=== PATIENT | female | born 1990 | race Caucasian/White ===

== ENCOUNTER 2021-02-01 12:00 | Observation (INO) | payer OTHER ==
[2021-02-01 12:54] LABS: Basophils % (A) 0 %; Eosinophils # (A) 0.2 k/uL (0-0.7); Eosinophils % (A) 1 %; HCT 40.8 % (34.0-46.0); HGB 13.4 gm/dL (11.4-16.0); Lymphocytes # (A) 2.8 k/uL (1.0-4.8); Lymphocytes % (A) 27 %; MCH 28.6 pg (25.0-35.0); MCV 86.6 fL (80.0-100.0); Mean Platelet Volume 7.2; Monocytes # (A) 0.5 k/uL (0-1.0); Monocytes % (A) 4 %; Neutrophils % (A) 66 %; Platelet Count 334 k/uL (150-450); RBC 4.71 m/uL (3.80-5.40); RDW 13.1 % (11.5-15.5); WBC 10.6 k/uL (3.8-10.6)
[2021-02-01 13:07] LABS: ALT 33 U/L (4-34); AST 30 U/L (14-36); African American GFR (CKD) >90 (>60 ml/min/1.73 sqM); Albumin 3.9 g/dL (3.5-5.0); Alkaline Phosphatase 50 U/L (38-126); Amylase 55 U/L (30-110); Anion Gap 8 mmol/L; Blood Urea Nitrogen 10 mg/dL (7-17); Calcium 9.7 mg/dL (8.4-10.2); Carbon Dioxide 24 mmol/L (22-30); Chloride 104 mmol/L (98-107); Glucose 107 mg/dL (74-99); Lipase 135 U/L (23-300); Non-African American GFR(CKD) >90 (>60 ml/min/1.73 sqM); Potassium 4.2 mmol/L (3.5-5.1); Sodium 136 mmol/L (137-145); Total Bilirubin 0.3 mg/dL (0.2-1.3); Total Protein 6.9 g/dL (6.3-8.2)
[2021-02-01] MEDS ORDERED: KETOROLAC 15 MG/ML 1 ML VIAL IVP STA ×2 (13:37→23:35)
[2021-02-01] MEDS ORDERED: ONDANSETRON 4 MG/2 ML VIAL IVP STA ×2 (13:37→17:53)
[2021-02-01] MEDS ORDERED: SODIUM CHLORIDE 0.9% 1,000 ML IV STA (13:37)
--- NOTE | 2021-02-01 13:44 | ED ---
General Adult HPI <Kentrell Beauchamp - Last Filed: 02/01/21 20:18> - General Source: patient, RN notes reviewed Mode of arrival: wheelchair Limitations: no limitations <Devorah Srivastava - Last Filed: 02/02/21 10:10> - General Chief complaint: Abdominal Pain Stated complaint: Abd pain Time Seen by Provider: 02/01/21 13:23 - History of Present Illness Initial comments: 30-year-old female presents to the emergency department, accompanied by her spouse, for evaluation of generalized lower abdominal pain, onset noon today. Patient states the pain came on unprovoked and is accompanied by mild nausea. Reports worsening pain with movement, laughing, and any activity. Patient describes discomfort as severe cramping. States she has had a bowel movement today, denies diarrhea or constipation. States she is also experiencing increased pressure in the lower abdomen with urination. Patient reports LMP 01/18/2021. Patient denies fever, chills, headache, chest pain, difficulty breathing, and shortness of breath. (Devorah Srivastava) - Related Data Home Medications Medication Instructions Recorded Confirmed No Known Home Medications 02/01/21 02/01/21 Allergies Allergy/AdvReac Type Severity Reaction Status Date / Time codeine Allergy Unknown Verified 02/01/21 14:35 hydromorphone [From Dilaudid] Allergy Chest Pain Verified 02/01/21 14:35 nitrofurantoin Allergy Anaphylaxis Verified 02/01/21 14:35 [From Macrobid] Review of Systems ROS Other: All systems not noted in ROS Statement are negative. <Kentrell Beauchamp - Last Filed: 02/01/21 20:18> ROS Other: All systems not noted in ROS Statement are negative. <Devorah Srivastava - Last Filed: 02/02/21 10:10> ROS Statement: Those systems with pertinent positive or pertinent negative responses have been documented in the HPI. Past Medical History - Past Family History Mother Family Medical History: No Reported History <Devorah Srivastava - Last Filed: 02/02/21 10:10> General Exam Limitations: no limitations (Well-developed, well-nourished female in no acute distress. Initial temperature 97.7, pulse 83, respirations 20, blood pressure 135/93, pulse ox 100% on room air.) General appearance: alert, in no apparent distress ENT exam: Present: normal exam, normal oropharynx, mucous membranes moist Respiratory exam: Present: normal lung sounds bilaterally. Absent: respiratory distress, wheezes, rales, rhonchi, stridor Cardiovascular Exam: Present: regular rate, normal rhythm, normal heart sounds. Absent: systolic murmur, diastolic murmur, rubs, gallop, clicks GI/Abdominal exam: Present: soft, tenderness (Diffuse lower abdominal tenderness unchanged with palpation), normal bowel sounds. Absent: distended, guarding, rebound, rigid Back exam: Present: normal inspection. Absent: CVA tenderness (R), CVA tende rness (L) Neurological exam: Present: alert, oriented X3, CN II-XII intact Psychiatric exam: Present: normal mood Skin exam: Present: warm, dry, intact, normal color. Absent: rash <Devorah Srivastava - Last Filed: 02/02/21 10:10> Course <Devorah Srivastava - Last Filed: 02/02/21 10:10> Vital Signs 02/01/21 02/01/21 02/01/21 12:24 17:16 21:48 Temperature 97.7 F Pulse Rate 83 95 90 Respiratory 20 18 18 Rate Blood Pressure 135/93 108/78 O2 Sat by Pulse 100 98 98 Oximetry - Reevaluation(s) Reevaluation #1: 02/01/21 16:47 Entered patient's room to update her on positive , and found her dry heaving. Informed her that the CT would be canceled and that additional blood work would be required. Zofran ordered for nausea. Patient agreeable to plan of care. Patient states last menstrual period was 3 weeks ago and was one week late. Denies any vaginal bleeding or discharge currently. 02/01/21 19:[address] Beauchamp who will assume patient care at this time. (Devorah Srivastava) Medical Decision Making - Lab Data Result diagrams: 02/01/21 12:31 02/01/21 12:31 <Kentrell Beauchamp - Last Filed: 02/01/21 20:18> - Lab Data Result diagrams: 02/02/21 05:52 02/01/21 12:31 <Devorah Srivastava - Last Filed: 02/02/21 10:10> - Medical Decision Making 30-year-old female with abdominal pain. Pain initially began as bilateral lower abdominal pain. Patient initially denied chance of stating her last menstrual cycle was approximately 2 weeks ago. Patient was found to be with a beta hCG of 3100. Ultrasound was performed which was performed both transabdominally and transvaginally. The left ovary was not visualized. There was some free fluid within the pelvis. Initial hemoglobin was 13.4. The vital signs are stable. At the time of my initial evaluation patient had no abdominal tenderness but did complain of pain in the right upper quadrant. Stating that her pelvic pain and lower abdominal pain had resolved. I did discuss case with Dr. Candace barragan for [employer], she agrees to admit the patient for observation. Repeat hemoglobin will be obtained now and at 6 AM as well as a repeat beta hCG in the morning. Pain medication will be available. The patient will be kept nothing by mouth. (Kentrell Beauchamp) 30-year-old female presents to the emergency Department with complaints of sudden onset lower abdominal pain around noon today. Upon exam, patient is well-appearing, but reports persistent discomfort and intermittent nausea. Denied vaginal bleeding or chance of stating her LMP 01/18/2021. However, upon review of lab work, patient's urine hCG is positive therefore a beta was ordered and hCG is 3154. Ultrasound was obtained and shows no intrauterine or ectopic, however there is fluid noted in the cul-de-sac. Patient's pain has localized to underneath the right breast/ right upper quadrant and abdomen remains nontender to palpation. Pain and nausea medication were given with minimal improvement therefore doses were repeated. Patient care was discussed with Dr. Beauchamp who agrees to assume care of this patient at this time. (Devorah Srivastava) - Lab Data Lab Results 02/01/21 02/01/21 02/01/21 Range/Units 12:31 12:31 12:31 WBC 10.6 (3.8-10.6) k/uL RBC 4.71 (3.80-5.40) m/uL Hgb 13.4 (11.4-16.0) gm/dL Hct 40.8 (34.0-46.0) % MCV 86.6 (80.0-100.0) fL MCH 28.6 (25.0-35.0) pg MCHC 33.0 (31.0-37.0) g/dL RDW 13.1 (11.5-15.5) % Plt Count 334 (150-450) k/uL MPV 7.2 Neutrophils % 66 % Lymphocytes % 27 % Monocytes % 4 % Eosinophils % 1 % Basophils % 0 % Neutrophils # 7.0 (1.3-7.7) k/uL Lymphocytes # 2.8 (1.0-4.8) k/uL Monocytes # 0.5 (0-1.0) k/uL Eosinophils # 0.2 (0-0.7) k/uL Basophils # 0.0 (0-0.2) k/uL PT (9.0-12.0) sec INR (<1.2) APTT (22.0-30.0) sec Sodium 136 L (137-145) mmol/L Potassium 4.2 (3.5-5.1) mmol/L Chloride 104 (98-107) mmol/L Carbon Dioxide 24 (22-30) mmol/L Anion Gap 8 mmol/L BUN 10 (7-17) mg/dL Creatinine 0.81 (0.52-1.04) mg/dL Est GFR (CKD-EPI)AfAm >90 (>60 ml/min/1.73 sqM) Est GFR (CKD-EPI)NonAf >90 (>60 ml/min/1.73 sqM) Glucose 107 H (74-99) mg/dL Calcium 9.7 (8.4-10.2) mg/dL Total Bilirubin 0.3 (0.2-1.3) mg/dL AST 30 (14-36) U/L ALT 33 (4-34) U/L Alkaline Phosphatase 50 (38-126) U/L Total Protein 6.9 (6.3-8.2) g/dL Albumin 3.9 (3.5-5.0) g/dL Amylase 55 (30-110) U/L Lipase 135 (23-300) U/L HCG, Quant mIU/mL Urine Color Yellow Urine Appearance Clear (Clear) Urine pH 6.5 (5.0-8.0) Ur Specific Barnum 1.026 (1.001-1.035) Urine Protein Negative (Negative) Urine Glucose (UA) Negative (Negative) Urine Ketones Negative (Negative) Urine Blood Negative (Negative) Urine Nitrite Negative (Negative) Urine Bilirubin Negative (Negative) Urine Urobilinogen <2.0 (<2.0) mg/dL Ur Leukocyte Esterase Negative (Negative) Urine HCG, Qual (Not Detectd) Blood Type Blood Type Confirm Blood Type Recheck Bld Type Recheck Status Antibody Screen Spec Expiration Date 02/01/21 02/01/21 02/01/21 Range/Units 12:31 12:31 20:02 WBC (3.8-10.6) k/uL RBC (3.80-5.40) m/uL Hgb (11.4-16.0) gm/dL Hct (34.0-46.0) % MCV (80.0-100.0) fL MCH (25.0-35.0) pg MCHC (31.0-37.0) g/dL RDW (11.5-15.5) % Plt Count (150-450) k/uL MPV Neutrophils % % Lymphocytes % % Monocytes % % Eosinophils % % Basophils % % Neutrophils # (1.3-7.7) k/uL Lymphocytes # (1.0-4.8) k/uL Monocytes # (0-1.0) k/uL Eosinophils # (0-0.7) k/uL Basophils # (0-0.2) k/uL PT (9.0-12.0) sec INR (<1.2) APTT (22.0-30.0) sec Sodium (137-145) mmol/L Potassium (3.5-5.1) mmol/L Chloride (98-107) mmol/L Carbon Dioxide (22-30) mmol/L Anion Gap mmol/L BUN (7-17) mg/dL Creatinine (0.52-1.04) mg/dL Est GFR (CKD-EPI)AfAm (>60 ml/min/1.73 sqM) Est GFR (CKD-EPI)NonAf (>60 ml/min/1.73 sqM) Glucose (74-99) mg/dL Calcium (8.4-10.2) mg/dL Total Bilirubin (0.2-1.3) mg/dL AST (14-36) U/L ALT (4-34) U/L Alkaline Phosphatase (38-126) U/L Total Protein (6.3-8.2) g/dL Albumin (3.5-5.0) g/dL Amylase (30-110) U/L Lipase (23-300) U/L HCG, Quant 3164.3 mIU/mL Urine Color Urine Appearance (Clear) Urine pH (5.0-8.0) Ur Specific Barnum (1.001-1.035) Urine Protein (Negative) Urine Glucose (UA) (Negative) Urine Ketones (Negative) Urine Blood (Negative) Urine Nitrite (Negative) Urine Bilirubin (Negative) Urine Urobilinogen (<2.0) mg/dL Ur Leukocyte Esterase (Negative) Urine HCG, Qual Detected (Not Detectd) Blood Type Blood Type Confirm B Positive Blood Type Recheck Bld Type Recheck Status Antibody Screen Spec Expiration Date 02/01/21 02/01/21 02/01/21 Range/Units 20:11 20:11 20:11 WBC 15.3 H (3.8-10.6) k/uL RBC 4.37 (3.80-5.40) m/uL Hgb 12.6 (11.4-16.0) gm/dL Hct 37.5 (34.0-46.0) % MCV 85.6 (80.0-100.0) fL MCH 28.7 (25.0-35.0) pg MCHC 33.5 (31.0-37.0) g/dL RDW 13.8 (11.5-15.5) % Plt Count 381 (150-450) k/uL MPV 7.2 Neutrophils % 78 % Lymphocytes % 17 % Monocytes % 3 % Eosinophils % 0 % Basophils % 0 % Neutrophils # 11.9 H (1.3-7.7) k/uL Lymphocytes # 2.6 (1.0-4.8) k/uL Monocytes # 0.5 (0-1.0) k/uL Eosinophils # 0.0 (0-0.7) k/uL Basophils # 0.1 (0-0.2) k/uL PT 10.0 (9.0-12.0) sec INR 0.9 (<1.2) APTT 22.5 (22.0-30.0) sec Sodium (137-145) mmol/L Potassium (3.5-5.1) mmol/L Chloride (98-107) mmol/L Carbon Dioxide (22-30) mmol/L Anion Gap mmol/L BUN (7-17) mg/dL Creatinine (0.52-1.04) mg/dL Est GFR (CKD-EPI)AfAm (>60 ml/min/1.73 sqM) Est GFR (CKD-EPI)NonAf (>60 ml/min/1.73 sqM) Glucose (74-99) mg/dL Calcium (8.4-10.2) mg/dL Total Bilirubin (0.2-1.3) mg/dL AST (14-36) U/L ALT (4-34) U/L Alkaline Phosphatase (38-126) U/L Total Protein (6.3-8.2) g/dL Albumin (3.5-5.0) g/dL Amylase (30-110) U/L Lipase (23-300) U/L HCG, Quant mIU/mL Urine Color Urine Appearance (Clear) Urine pH (5.0-8.0) Ur Specific Barnum (1.001-1.035) Urine Protein (Negative) Urine Glucose (UA) (Negative) Urine Ketones (Negative) Urine Blood (Negative) Urine Nitrite (Negative) Urine Bilirubin (Negative) Urine Urobilinogen (<2.0) mg/dL Ur Leukocyte Esterase (Negative) Urine HCG, Qual (Not Detectd) Blood Type B Positive Blood Type Confirm Blood Type Recheck No Previous Record Bld Type Recheck Status CABO Indicated Antibody Screen NEGATIVE Spec Expiration Date 02/04/2021 - 2310 Disposition Is patient prescribed a controlled substance at d/c from ED?: No Decision to Admit Reason: Admit from EC Decision Date: 02/01/21 Decision Time: 20:21 <Kentrell Beauchamp - Last Filed: 02/01/21 20:18> Is patient prescribed a controlled substance at d/c from ED?: No <Devorah Srivastava - Last Filed: 02/02/21 10:10> Clinical Impression: Abdominal pain, Disposition: ADMITTED IP TO THIS [facility] Condition: Stable
[2021-02-01 15:06] LABS: Appearance,Urine Clear (Clear); Bilirubin,Urine Negative (Negative); Blood,Urine Negative (Negative); Color,Urine Yellow; Glucose,Urine (UA) Negative (Negative); Ketones,Urine Negative (Negative); Leukocyte Esterase,Urine Negative (Negative); Nitrite,Urine Negative (Negative); PH, Urine 6.5 (5.0-8.0); Protein,Urine Negative (Negative); Specific Gravity,Urine 1.026 (1.001-1.035); Urobilinogen,Urine <2.0 mg/dL (<2.0)
--- NOTE | 2021-02-01 15:27 | XR ---
EXAMINATION TYPE: XR KUB DATE OF EXAM: 02/01/2021 COMPARISON: None INDICATION: Abdomen pain TECHNIQUE: Single view abdomen upright view FINDINGS: No free air is under the diaphragm. Normal colonic bowel gas is present. No suspicious air-fluid leve ls or differential air-fluid levels are evident. Psoas margins are normal. No organomegaly is present. No suspicious calcifications evident. IMPRESSION: 1. Unremarkable Abdomen
[2021-02-01] MEDS ORDERED: MORPHINE SULFATE 4 MG/ML SYRINGE IVP STA ×2 (15:36→20:10)
--- NOTE | 2021-02-01 18:50 | US ---
EXAMINATION TYPE: Transabdominal and TV US DATE OF EXAM: 02/01/2021 6:35 PM COMPARISON: NONE CLINICAL HISTORY: diffuse lower abdominal pain, sudden onset. EC patient with RUQ pain now; gallbladd er already removed; prior abdominal pain today; did not know she was (urine detected); EXAM PERFORMED: Transvaginal (TV) and Transabdominal (TA) EXAM MEASUREMENTS: GESTATIONAL AGE / DATING Physician Established: Not yet established Dates by LMP: (2 weeks/4 days) EDC: 10/21/2021 Dates by First Scan: No previous Dates by Current Scan for: no IUP or ectopic is seen today and may be limited by patient's very large body habitus MATERNAL ANATOMY Uterus: 7.4 x 5.2 x 4.1cm; endometrial thickness = 0.7cm Right Ovary: 2.3 x 2.7 x 2.5cm Left Ovary: not seen TA or TV US Post CDS / Adnexa: moderate amount of free fluid seen in posterior cul de sac =1.3 x 2.8 x 1.2 x 0.52 3 = 2.3ml. Presence of corpus luteal cyst: not seen GESTATION / SURVEY: no IUP or ectopic is seen; left ovary is not seen. Date of LMP: Beta HcG (if available): urine detected IMPRESSION: The uterus is empty. No adnexal mass. There is some free fluid in the cul-de-sac measures 1.3 cm in t hickness. There are cervical cysts noted.
[2021-02-01] MEDS ORDERED: ONDANSETRON 4 MG/2 ML VIAL IVP PRN (20:21)
[2021-02-01] MEDS ORDERED: MORPHINE SULFATE 4 MG/ML SYRINGE IV PRN (20:21)
[2021-02-01] MEDS ORDERED: NALOXONE 0.4 MG/ML 1 ML VIAL IV PRN (20:21)
[2021-02-01] MEDS ORDERED: SODIUM CHLORIDE 0.9% 1,000 ML IV SCH (20:30)
--- NOTE | 2021-02-01 20:35 | XR ---
EXAMINATION TYPE: XR chest 1V portable DATE OF EXAM: 02/01/2021 COMPARISON: NONE HISTORY: Right sided chest pain TECHNIQUE: 2 views portable FINDINGS: Heart and mediastinum are normal. Lungs are clear. Diaphragm is normal. Bony thorax is inta ct. IMPRESSION: Normal chest.
[2021-02-01 20:44] LABS: INR 0.9 (<1.2); Partial Thromboplastin Time 22.5 sec (22.0-30.0)
[2021-02-01 20:54] LABS: Basophils # (A) 0.1 k/uL (0-0.2); Basophils % (A) 0 %; Eosinophils % (A) 0 %; HCT 37.5 % (34.0-46.0); HGB 12.6 gm/dL (11.4-16.0); Lymphocytes # (A) 2.6 k/uL (1.0-4.8); Lymphocytes % (A) 17 %; MCH 28.7 pg (25.0-35.0); MCHC 33.5 g/dL (31.0-37.0); MCV 85.6 fL (80.0-100.0); Mean Platelet Volume 7.2; Monocytes # (A) 0.5 k/uL (0-1.0); Monocytes % (A) 3 %; Neutrophils # (A) 11.9 k/uL (1.3-7.7); Neutrophils % (A) 78 %; Platelet Count 381 k/uL (150-450); RBC 4.37 m/uL (3.80-5.40); RDW 13.8 % (11.5-15.5); WBC 15.3 k/uL (3.8-10.6)
[2021-02-01] MEDS ORDERED: CYCLOBENZAPRINE 10 MG TAB PO STA (23:33)
[2021-02-01] MEDS ORDERED: KETOROLAC 30 MG/ML 1 ML VIAL IVP STA (23:40)
[2021-02-01] MEDS: LACTATED RINGERS 1,000 ML IV SCH (23:53)
--- NOTE | 2021-02-01 23:57 | P.CONS ---
History of Present Illness - Reason for Consult Consult date: 02/01/21 - History of Present Illness The patient is a 30-year-old female with a PMH of cholecystectomy, gastric sleeve and subsequent gastric ulcer in 2012 who presented to the emergency room with complaints of lower abdominal pressure and pain. The patient reported that her pain had started earlier today, unprovoked, and gradually worsened. She initially felt as though she had to defecate, but after spending some time on the toilet, she was unable to do so. She experienced continued pressure of the lower abdomen, which prompted her to come to the emergency room. In the emergency room, the patient's test returned positive with a hCG 3164. The patient then noted that her pain subsequently changed to right upper quadrant, right flank, and right shoulder. She notes that the pain is very strongly pleuritic, 10 out of 10, worsening with movement, and occurring in a bandlike fashion across her right flank to her right shoulder, and her right upper quadrant. The pain is alleviated with taking shallow breaths or with sitting in a specific position. She denied ever experiencing such pain in the past. Also denied any history of blood clots. Denied lower extremity swelling, pain, or redness. Denied any history of heart disease. Reports occasional cramping of her calves and her back, but states that she hasn't experienced one "in quite some time". The patient further denied dizziness, nausea, vomiting, diaphoresis. Vital signs at time of the interview were bp 109/70, pulse 62, and SpO2 97% on room air. EKG revealed a normal sinus rhythm at [address]/T-wave changes noted as reviewed by me. Review of systems: Pertinent positives and negatives as discussed in HPI, a complete review of systems was performed and all other systems are negative. Physical examination: General: non toxic, in moderate distress, appears older than stated age, morbidly obese Derm: no unusual rashes/lesions no unusual ecchymoses, warm, dry Head: atraumatic, normocephalic, symmetric Eyes: EOMI, no lid lag, anicteric sclera, pupils equal round reactive to light ENT: Nose and ears atraumatic, no thrush, no pharyngeal erythema Neck: No thyromegaly, no cervical lymphadenopathy, trachea midline, supple Mouth: no lip lesion, mucus membranes moist Cardiovascular: S1S2 reg, no murmur, positive posterior tibial pulse bilateral, no edema, capillary refill less than 2 seconds Lungs: CTA bilateral, no rhonchi, no rales , no accessory muscle use, right chest wall tenderness Abdominal: soft, right upper quadrant tenderness, some guarding, no appreciable organomegaly, normal bowel sounds Ext: no gross muscle atrophy, muscle strength 5 out of 5 in all 4 extremities grossly, no contractures, Neuro: No gross focal deficits noted Psych: Alert, oriented, appropriate affect Assessment/plan Right upper quadrant, right flank, and right shoulder pain -Troponin and d-dimer ordered by cardiology -Low suspicion for ACS at this time due to strong pleuritic nature of pain -Also low suspicion for PE in setting of normal SpO2 and pulse rate. Follow-up d-dimer, although likely to be elevated due to ongoing -Defer to [employer] with regards to possible ectopic -Discussed the case with LA[employer]AD [employer]CH[employer]IC physician dehydration unit operator. Flexeril ordered for suspected muscle spasm. LAUNCHING PAD MECHANIC ordered Toradol for the pain We appreciate this opportunity to be involved in this patient's care. We will follow the patient with you. For any further questions, please not hesitate to contact the [facility] inpatient team. Medications and Allergies Home Medications Medication Instructions Recorded Confirmed Type No Known Home Medications 02/01/21 02/01/21 History Allergies Allergy/AdvReac Type Severity Reaction Status Date / Time codeine Allergy Unknown Verified 02/01/21 14:35 hydromorphone [From Dilaudid] Allergy Chest Pain Verified 02/01/21 14:35 nitrofurantoin Allergy Anaphylaxis Verified 02/01/21 14:35 [From Macrobid] Physical Exam Vitals: Vital Signs Temp Pulse Pulse Resp BP BP Pulse Ox 02/01/21 23:30 62 18 109/70 97 02/01/21 22:10 98 F 87 18 135/83 98 02/01/21 21:48 90 18 98 02/01/21 17:16 95 18 108/78 98 02/01/21 12:24 97.7 F 83 20 135/93 100 Intake and Output 02/01/21 02/01/21 02/02/21 14:59 22:59 06:59 Other: # Voids 1 Weight 181.437 kg Results CBC & Chem 7: 02/01/21 20:11 02/01/21 12:31 Labs: Abnormal Lab Results - Last 24 Hours (Table) 02/01/21 02/01/21 Range/Units 12:31 20:11 WBC 15.3 H (3.8-10.6) k/uL Neutrophils # 11.9 H (1.3-7.7) k/uL Sodium 136 L (137-145) mmol/L Glucose 107 H (74-99) mg/dL
--- NOTE | 2021-02-02 00:39 | P.HPOB ---
History of Present Illness H&P Date: 02/01/21 Chief Complaint: Abdominal pain, This is a 30-year-old female 2 para 1 with an last menstrual period started January 14 and lasted until January 18 who presented to the emergency room with complaints of bilateral lower abdominal pain that started suddenly at around noon time today. She states she was driving her car and felt like she had to have a bowel movement. When she went into the house and sat on the toilet she was unable to have a bowel movement but just felt cramping. She came into the emergency room and was given 1 dose of Toradol which did not seem to help her pain very much. She was then given morphine. Shortly after the morphine was given her lower abdominal pain resolved but she started having severe right upper quadrant pain under her ribs that extended into her right chest and right back. She states it makes it hard to take a deep breath. She was also having some dry heaving and nausea around this time. When the pain comes on, she gets a hot feeling that comes in waves and only lasts a few seconds. She denies any current vaginal bleeding. The patient was unaware that she was until she came into the emergency room. She states that she has not been preventing but has not actively been trying to get . Uultrasound in the emergency room showed a normal-size uterus with an endometrium of 0.7 cm and some fluid in the cul-de-sac measuring approximately 1.3 cm with a volume of approximately 2.3 mL, with left ovary not visualized. Her beta hCG level was 3100. She denies any history of pulmonary embolism or blood clotting disorder. She states she was told that she had a hernia when she had an endoscopy but is unsure where the hernia is. She denies any cardiac issues. The patient states that in the past when she has received morphine, she gets a migraine headache from it. Dilaudid does give her chest pain but nothing like the pain that she is currently experiencing. Codeine also gives her a migraine. Obstetrical history: . History of 1 vaginal delivery at term. Her d aughter is 6 years old. No complications during that . Gynecologic history: No history of sexual transmitted diseases. Her last Pap smear was in 2019 and was normal. Social Hx: She is . 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 Review of Systems Constitutional: Denies chills, Denies fever Eyes: denies blurred vision, denies pain Ears, nose, mouth and throat: Denies headache, Denies sore throat Cardiovascular: Reports chest pain (right-sided) Respiratory: Denies cough Gastrointestinal: Reports abdominal pain, Reports nausea, Denies change in bowel habits, Denies constipation, Denies diarrhea, Denies vomiting Genitourinary: Reports pelvic pain, Reports , Denies abnormal vaginal bleeding Menstruation: Reports period normal Musculoskeletal: Denies myalgias Integumentary: Denies pruritus, Denies rash Neurological: Denies numbness, Denies weakness Psychiatric: Denies anxiety, Denies depression Past Medical History Past Medical History: No Reported History Past Surgical History: Adenoidectomy, Bariatric Surgery (gastric sleeve), Cholecystectomy, Orthopedic Surgery (left ankle surgery, reconstruction on her left ring finger at 2-1/2 years old), Tonsillectomy Past Anesthesia/Blood Transfusion Reactions: No Reported Reaction Past Psychological History: No Psychological Hx Reported Medications and Allergies Home Medications Medication Instructions Recorded Confirmed Type No Known Home Medications 02/01/21 02/01/21 History Allergies Allergy/AdvReac Type Severity Reaction Status Date / Time codeine Allergy Unknown Verified 02/01/21 14:35 hydromorphone [From Dilaudid] Allergy Chest Pain Verified 02/01/21 14:35 nitrofurantoin Allergy Anaphylaxis Verified 02/01/21 14:35 [From Macrobid] Exam Osteopathic Statement: *. No significant issues noted on an osteopathic structural exam other than those noted in the History and Physical/Consult. Vital Signs Temp Pulse Pulse Resp BP BP Pulse Ox 02/01/21 23:30 62 18 109/70 97 02/01/21 22:10 98 F 87 18 135/83 98 02/01/21 21:48 90 18 98 02/01/21 17:16 95 18 108/78 98 02/01/21 12:24 97.7 F 83 20 135/93 100 Intake and Output 02/01/21 02/01/21 02/02/21 14:59 22:59 06:59 Other: # Voids 1 Weight 181.437 kg Gen.: Obese female who initially appears to be in moderate distress having to sit up and leaning forward in order to talk Lungs: Clear to auscultation bilaterally Heart: Regular rate and rhythm Abdomen: Soft, positive bowel sounds 4, tender in the right upper quadrant just underneath her rib cage extending to her right chest and right upper back and along her right mid abdomen Pelvic exam: Uterus is slightly enlarged, nontender, with no adnexal tenderness. Difficult to completely feel adnexa due to patient's size. No vaginal bleeding is noted Extremities: Negative Homans Results Result Diagrams: 02/01/21 20:11 02/01/21 12:31 Abnormal Lab Results - Last 24 Hours (Table) 02/01/21 02/01/21 02/01/21 Range/Units 12:31 20:11 22:44 WBC 15.3 H (3.8-10.6) k/uL Neutrophils # 11.9 H (1.3-7.7) k/uL D-Dimer 1.25 H (<0.60) mg/L FEU Sodium 136 L (137-145) mmol/L Glucose 107 H (74-99) mg/dL Assessment and Plan Assessment: Abdominal pain with positive test, possible early IUP versus ectopic Plan: Admission for observation and serial beta hCG and CBC levels. We'll keep nothing by mouth until beta hCG levels return in the morning. We'll continue close observation. Cardiology and internal medicine consults were obtained due to chest pain. Pleuritic-type chest pain has resolved since giving Toradol and Flexeril.
[2021-02-02 06:06] LABS: Basophils % (A) 0 %; Eosinophils % (A) 0 %; HCT 32.3 % (34.0-46.0); HGB 10.5 gm/dL (11.4-16.0); Lymphocytes # (A) 2.6 k/uL (1.0-4.8); Lymphocytes % (A) 25 %; MCH 28.7 pg (25.0-35.0); MCHC 32.5 g/dL (31.0-37.0); Mean Platelet Volume 8.7; Monocytes # (A) 0.5 k/uL (0-1.0); Monocytes % (A) 5 %; Neutrophils # (A) 7.3 k/uL (1.3-7.7); Neutrophils % (A) 68 %; Platelet Count 285 k/uL (150-450); RBC 3.67 m/uL (3.80-5.40); RDW 13.4 % (11.5-15.5); WBC 10.6 k/uL (3.8-10.6)
[2021-02-02] MEDS: LACTATED RINGERS 1,000 ML IV SCH ×2 (08:05→12:35)
--- NOTE | 2021-02-02 09:02 | US ---
EXAMINATION TYPE: Transabdominal DATE OF EXAM: 02/02/2021 8:41 AM COMPARISON: US 02/01/2021 CLINICAL HISTORY: decreased HCG with lower abd pain.. Left side pain per patient EXAM PERFORMED: Transvaginal (TV) and Transabdominal (TA) EXAM MEASUREMENTS: GESTATIONAL AGE / DATING Physician Established: Not yet established Dates by LMP: (2 weeks/5 days) EDC: 10/21/2021 Dates by Current Scan for: No IUP seen at this time MATERNAL ANATOMY Uterus: 9.1 x 6.4 x 4.6 cm. Nabothian cysts are present. Right Ovary: Obscured by overlying bowel gas Left Ovary: 4.7 x 2.8 x 4.1 cm Post CDS / Adnexa: No free fluid. Hypoechoic lesion seen in cul de sac/left adnexa = 7.1 x 2.8 x 2.9 cm Presence of free fluid: no Presence of corpus luteal cyst: not visualized on todays exam GESTATION / SURVEY IUP: No IUP seen at this time Date of LMP: , Beta HcG (if available): 02/02/21- 2834.8 Endometrium = 1.2 cm. Hyperechoic area seen adjacent to fundus. This is nonspecific. Ectopic pregnan cy is not excluded. Due to limiting factors during this examination, artifact would be within the dif ferential. IMPRESSION: No intrauterine gestation identified. Spontaneous and ectopic should be considered . Correlation with beta-hCG is recommended. Exam is limited due to patient body habitus. 2. Ill-defined heterogenous hypoechoic area within the left adnexa adjacent to left ovary. Consider o ther etiologies such as ectopic , salpingitis, bowel, artifact. Findings are nonspecific.
--- NOTE | 2021-02-02 09:38 | P.PN ---
Progress Note - Text Progress Note Date: 02/02/21 Patient is seen again this morning. She states she got up to the bathroom and feels like she has to urinate but has occult to going. She feels like she has a constant pressure down there. She slept pretty well but once she got up this morning she has been more uncomfortable in her pelvis region on both sides more on the left this morning. Her beta hCG did drop to 28,000 from 31,000 her hemoglobin also dropped from 12.6 last night to 10.5 this morning. In light of these findings and ultrasound was again performed this morning. She had cul-de-sac fluid of 1.3 cm yesterday and now at 7.1 cm. Still no definite ectopic is seen and spontaneous miscarriage versus ectopic is con sidered according to radiology. Abdomen is soft with still tenderness in the right mid abdomen and diffuse tenderness in her lower abdomen. She rates her pain at a 4-5 right now. Impression is probable ruptured ectopic . Plan is to proceed with laparoscopy with possible laparotomy, possible left inject me, possible salpingectomy, possible oophorotomy, and possible D&C. Risks and benefits of the surgery were discussed in detail with the patient. I also consulted with Dr. Abelardo Hayes from general surgery who will be present in surgery to help with trocar placement due to her history of a gastric sleeve. Consents are signed.
[2021-02-02] MEDS ORDERED: ceFAZolin 3 GM in SODIUM CHLORIDE 0.9% 100 ML IVPB ONE (10:33)
[2021-02-02] MEDS ORDERED: PROPOFOL 10 MG/ML 20 ML VIAL IV ONE (10:46)
[2021-02-02] MEDS ORDERED: NEOSTIGMINE 1 MG/ML 10 ML VIAL ONE (10:46)
[2021-02-02] MEDS ORDERED: fentaNYL (PF) 50 MCG/ML 2 ML AMP ONE (10:46)
[2021-02-02] MEDS ORDERED: GLYCOPYRROLATE 0.2 MG/ML 2 ML VIAL ONE (10:46)
[2021-02-02] MEDS ORDERED: SUCCINYLCHOLINE CHLORIDE VIAL 200 MG/10 ML VIAL IV ONE (10:46)
[2021-02-02] MEDS ORDERED: DEXAMETHASONE SOD PHOSPHATE 10 MG/ML 1 ML VIAL ONE (10:46)
[2021-02-02] MEDS ORDERED: ROCURONIUM 10 MG/ML (5 ML VIAL) IV ONE (10:46)
[2021-02-02] MEDS ORDERED: MIDAZOLAM 2 MG/2 ML VIAL ONE (10:46)
[2021-02-02] MEDS ORDERED: KETOROLAC 15 MG/ML 1 ML VIAL ONE (10:46)
[2021-02-02] MEDS ORDERED: LIDOCAINE 1% INJ 10MG/ML (20 ML MDV) ONE (10:46)
[2021-02-02] MEDS ORDERED: ONDANSETRON 4 MG/2 ML VIAL ONE (10:46)
[2021-02-02] MEDS ORDERED: BUPIVACAINE (PF) 0.25% 30 ML VIAL SQ ONE (10:49)
[2021-02-02] MEDS ORDERED: LACTATED RINGERS 1,000 ML IV ONE (10:49)
--- NOTE | 2021-02-02 11:52 | P.PN ---
Progress Note - Text Progress Note Date: 02/02/21 Presented rounding on patient but she just left the floor to the operative room for possible exploratory laparoscopy. Patient will be seen later
[2021-02-02] MEDS ORDERED: diphenhydrAMINE 50 MG/ML 1 ML VIAL IVP PRN (12:16)
[2021-02-02] MEDS ORDERED: SIMETHICONE 80 MG CHEWABLE PO PRN (12:16)
[2021-02-02] MEDS ORDERED: KETOROLAC 15 MG/ML 1 ML VIAL IVP PRN (12:16)
[2021-02-02] MEDS ORDERED: ONDANSETRON 4 MG/2 ML VIAL IVP PRN (12:16)
[2021-02-02] MEDS ORDERED: HYDROcodone/APAP 7.5-325MG 1 EACH TAB PO PRN (12:16)
[2021-02-02] MEDS ORDERED: IBUPROFEN 600 MG TAB PO PRN (12:16)
--- NOTE | 2021-02-02 12:16 | P.OP ---
Date of Procedure: 02/02/21 Preoperative Diagnosis: Probable ruptured ectopic Postoperative Diagnosis: Ruptured left tubal ectopic Procedure(s) Performed: Laparoscopy with evacuation of hemoperitoneum and left salpingectomy with removal of ectopic Anesthesia: IRENE Surgeon: Kimberlyn Maria Community Health Promoter #1: Sammy Hayes Estimated Blood Loss (ml): 50 Pathology: other (Left fallopian tube with clot and tissue from the cul-de-sac) Condition: stable Disposition: floor Indications for Procedure: This is a 30-year-old female 2 para 1 who presented to the emergency room with acute onset of lower abdominal pain. This did initially resolve after pain medication and ultrasound showed a very small collection of fluid behind uterus at that time. She was observed overnight her beta hCG did drop from 8424-5108. Her pain initially resolved and her lower abdomen but then increased this morning. Repeat ultrasound now showed a larger fluid collection in the cul-de-sac up to 7 cm. Blood type is B+. She is taken to surgery for probable ruptured ectopic . I have discussed the risks, benefits, and alternative therapies for the above- mentioned procedure and for both sedation/anesthesia as well as necessary blood products administration, if indicated, as they pertain to this patient. The patient has indicated her understanding and acceptance of the risks and procedures discussed. Operative Findings: A large amount of blood and clot is noted in the pelvis and along the gutters and the upper abdomen. There is a defect in the left fallopian tube and the proximal portion very close to the corneal region. There is also tissue that appears to be the ectopic adherent to some clot sitting in the cul-de-sac. The right fallopian tube appears very long but normal in appearance. Both ovaries appear normal. Description of Procedure: The patient is taken to the operating room where she is placed in the dorsal lithotomy position. She is prepped and draped in the normal sterile fashion including a Hummel catheter insertion. Pelvic exam is performed under anesthesia but was very difficult due to patient's size. A bivalve speculum was placed in the patient's vagina and a kroner uterine inserted through the cervix and the balloon is inflated. The anterior lip of the cervix had been grasped with an Allis clamp for retraction. The Allis clamp and the speculum I then removed and gloves are changed. Attention is turned to the abdomen. Dr. Boutt made a cut in the left upper abdomen with a scalpel and placed a 5 mm optical trocar under direct visualization. Once inside pneumoperitoneum was achieved. A second port was placed in the right lower quadrant with a small cut with the scalpel and then a 5 mm disposable blade this trocar was placed. A 12 mm port is then also placed in the left lower quadrant of the abdomen after making a small cut and then under direct placement the port was placed with no difficulty. A suction linen tech was used to suction the clot and blood out of the pelvis. Once the uterus was able to be visualized it was apparent that there was a rupture in the fallopian tube on the left side near the corneal region but not at the corneal region. Next a LigaSure was used to clamp the fallopian tube at the corneal region cauterize and cut. The remaining portion of the tube was removed completely using the LigaSure clamping and cauterizing and cutting. Once the tube was freed it was placed above the uterus for easy location later. Also there was a tissue-like structure that appeared to be the ectopic that was attached with clot in the posterior cul-de-sac that was also placed with the tube. The remaining blood clot was suctioned out. Next a Endosac was placed through the 12 mm port and the ectopic and tube were placed in the sac. The sac was then closed and brought up to the trocar. The cul-de-sac was irrigated and the area where the tube was removed was irrigated. Monopolar cautery was used using a flat paddle on the uterus portion and excellent hemostasis was noted. Once adequate hemostasis was assured the pneumoperitoneum was released and the left lower port with a 12 mm trocar was removed including the fact. The left lower quadrant port was then closed with 0 Vicryl suture in interrupted [id number] stitch on the fascial layer and then all incisions are closed with 4-0 undyed Vicryl suture in a subcuticular fashion. The incision sites are then injected with quarter percent Marcaine. Approximately 10 mL were used. Steri-Strips and Band-Aids were then placed. All sponge and needle counts are correct. The patient is then taken to recovery room in stable condition.
--- NOTE | 2021-02-02 12:17 | P.OP ---
Date of Procedure: 02/02/21 Procedure(s) Performed: PREOPERATIVE DIAGNOSIS: Hemoperitoneum POSTOPERATIVE DIAGNOSIS: Ruptured ectopic PROCEDURE: Diagnostic laparoscopy, assist with gynecologic procedure SURGEON: Abigail EBL: Refer to AUTO OVERHAULER off no ANESTHESIA: General COMPLICATIONS: None OPERATIVE PROCEDURE: Patient place in the operating table in the supine position. General anesthesia achieved. Patient was then placed in lithotomy. Abdomen was prepped and draped sterilely. After uterine manipulator placed by gynecology a 5 mm left upper quadrant incision was made. The optical 5 mm trocar was placed into the peritoneal cavity without difficulty. Blood was seen in the abdomen. Sufflation took place to 15 mmHg. Additional 5 mm right lower quadrant and 12 mm left lower quadrant trochars were placed. I then assisted Dr. Maria with the gynecologic procedure. Refer to her operative report for the remainder of the details on this case.
--- NOTE | 2021-02-02 12:44 | P.DS ---
Providers Date of admission: 02/01/21 20:21 Expected date of discharge: 02/02/21 Attending physician: Kimberlyn Maria Consults: 02/01/21 23:00 Consult Physician Stat Consulting Provider: Shital Grant Consult Reason/Comments: chest pain Do you want consulting provider notified?: Already Contacted Primary care physician: Aníbal Cali Hospital Course: This is a 30-year-old female 2 para 1 who presented with complaints of abdominal pain that started suddenly yesterday at around noon. The pain did resolve with pain medication initially and she was admitted for observation and serial beta hCG and CBC levels. Her beta hCG level did drop after 12 hours and her CBC did show a 2 g drop within 8 hours. In addition her pain increased the morning and her for the decision was made to proceed with surgery. She underwent a laparoscopy with evacuation of hemoperitoneum and removal of left fallopian tube and ectopic due to ruptured ectopic. Postoperatively she will go to the floor and then is long and she is feeling well and tolerating diet, will be discharged home later today. She will be given a prescription for ibuprofen and Winslow. She is advised no intercourse and no heavy lifting. She will need to see me in the office in approximately 1 week for a postoperative check. Routine postoperative instructions are given. She is advised to call the office if she has any further questions or concerns after discharge. Procedures: Laparoscopy with evacuation of hemoperitoneum, left salpingectomy, and removal of ectopic on 02/02/2021 Patient Condition at Discharge: Stable Plan - Discharge Summary New Discharge Prescriptions: New HYDROcodone/APAP 7.5-325MG [Winslow 7.5-325] 1 each PO Q6HR PRN #12 tab PRN Reason: Pain Ibuprofen [Motrin] 600 mg PO Q6HR PRN #60 tab PRN Reason: Mild Discomfort Discharge Medication List HYDROcodone/APAP 7.5-325MG [Winslow 7.5-325] 1 each PO Q6HR PRN #12 tab 02/02/21 [Rx] Ibuprofen [Motrin] 600 mg PO Q6HR PRN #60 tab 02/02/21 [Rx] Follow up Appointment(s)/Referral(s): Aníbal Cali DO [Primary Care Provider] - 1-2 days Kimberlyn Maria DO [Doctor of Osteopathic Medicine] - 1 Week Activity/Diet/Wound Care/Special Instructions: Activity as tolerated. May shower, but no tub baths for 1 week. No intercourse for at least 1 week[address] while on narcotic pain medication. May use ibuprofen or Winslow as needed for pain. Call the office if there are any concerns or questions prior to your appointment time. Discharge Disposition: HOME SELF-CARE
[2021-02-03] MEDS: LACTATED RINGERS 1,000 ML IV SCH (00:52)
[2021-02-03 07:34] LABS: Basophils % (A) 0 %; Eosinophils % (A) 0 %; HCT 24.3 % (34.0-46.0); Lymphocytes # (A) 2.5 k/uL (1.0-4.8); Lymphocytes % (A) 22 %; MCH 29.1 pg (25.0-35.0); MCV 85.6 fL (80.0-100.0); Mean Platelet Volume 7.8; Monocytes # (A) 0.5 k/uL (0-1.0); Monocytes % (A) 4 %; Neutrophils # (A) 8.3 k/uL (1.3-7.7); Neutrophils % (A) 72 %; Platelet Count 264 k/uL (150-450); RBC 2.84 m/uL (3.80-5.40); RDW 13.8 % (11.5-15.5); WBC 11.5 k/uL (3.8-10.6)
[2021-02-03 07:35] LABS: HGB 8.3 gm/dL (11.4-16.0)
[2021-02-03 08:36] VITALS: BP 115/75; PULSE 95; RESP 16; TEMP 98.1
[2021-02-03] MEDS ORDERED: ACETAMINOPHEN TAB 325 MG TAB PO PRN (12:17)
== END 2021-02-03 09:46 | disposition home or self-care (01) ==
LOC: EC 12:00 → 4FBP 20:21
PROVIDERS: ADMIT Obstetrics & Gynecology; ATTEND Obstetrics & Gynecology
DX: O00.102 Left tubal pregnancy without intrauterine pregnancy (principal); K66.1 Hemoperitoneum; K21.9 Gastro-esophageal reflux disease without esophagitis; R79.89 Other specified abnormal findings of blood chemistry; E66.01 Morbid (severe) obesity due to excess calories; Z68.44 Body mass index [BMI] 60.0-69.9, adult; Z88.1 Allergy status to other antibiotic agents; Z88.5 Allergy status to narcotic agent; Z87.11 Personal history of peptic ulcer disease; Z98.84 Bariatric surgery status; Z90.49 Acquired absence of other specified parts of digestive tract; Z98.890 Other specified postprocedural states
CPT/HCPCS: 59151; 96376 ×2; 96361; 96374; 96375; 99285; 36415; 93005; 86900; 86901; 85379; 88305; 80053; 82150; 83690; 84484; 85025 ×3; 85610; 85730; 86850; 81003; 81025; 84702 ×2; 71045; 74018; 76801 ×2; 76817 ×2; G0378 ×3; J2250; J0330; J2270; J1100; J2710; J0690; J2405 ×2; J2001; J3010; J1885 ×3; J2704

== ENCOUNTER → 2021-04-02 | Outpatient (CLI) | payer OTHER ==
--- NOTE | 2021-04-03 09:41 | US ---
EXAMINATION TYPE: Ultrasound OB <= 14 weeks transvaginal DATE OF EXAM: 04/02/2021 4:32 PM COMPARISON: NONE CLINICAL HISTORY: 30-year-old female Z36.89 CONFIRM DATES AND VIABILITY. Hx of ectopic Heidisukhi stanley 2020; patient states having left fallopian tube removed. EXAM PERFORMED: Transvaginal (TV) and Transabdominal (TA) FINDINGS: EXAM MEASUREMENTS: GESTATIONAL AGE / DATING Physician Established: (8 weeks/1 days) EDC: 11/11/21 Dates by First Scan: No previous this is first scan here Dates by Current Scan for: (8 weeks/1 days) EDC: 11/11/21 MATERNAL ANATOMY Uterus: Cervical nabothian cysts measuring up to 1.2 cm. Anteverted and gravid uterus. Right Ovary: Not seen; excessive bowel gas Left Ovary: Not seen; excessive bowel gas Presence of free fluid: No Presence of corpus luteal cyst: Ovaries not seen Presence of subchorionic bleed: No GESTATION / SURVEY CRL: 16.71 mm (8 weeks/1 days) MSD: Shows no gross abnormality. Yolk Sac (normal less than 6mm): 0.25 cm Heart Rate: 172 bpm, upper limits of normal Rhythm: Normal IUP: Viable IUP Batter Scaler notes: Difficult exam due to large patient body habitus IMPRESSION: 1. Single live intrauterine with position and establish gestational age of 8 weeks 1 day. C urrent ultrasound biometry by crown-rump length is exactly concordant. 2. heart rate upper limits of normal at 172 BPM. Consider short interval follow-up. 3. Neither ovary could be visualized.
== END | disposition home or self-care (01) ==
LOC: RADUSWWP 16:03
PROVIDERS: ATTEND Obstetrics & Gynecology
DX: Z36.89 Encounter for other specified antenatal screening (principal)
CPT/HCPCS: 76801; 76817

== ENCOUNTER 2021-05-14 15:46 | Emergency (ER) | payer OTHER ==
[2021-05-14] MEDS ORDERED: ACETAMINOPHEN TAB 325 MG TAB PO STA (19:10)
[2021-05-14] MEDS ORDERED: ONDANSETRON ODT 4 MG TAB PO STA (19:10)
[2021-05-14 19:30] LABS: Basophils % (A) 0 %; Eosinophils # (A) 0.2 k/uL (0-0.7); Eosinophils % (A) 1 %; HGB 11.3 gm/dL (11.4-16.0); Hypochromasia Slight; Lymphocytes # (A) 3.4 k/uL (1.0-4.8); Lymphocytes % (A) 28 %; MCH 24.9 pg (25.0-35.0); MCHC 32.4 g/dL (31.0-37.0); MCV 76.8 fL (80.0-100.0); Mean Platelet Volume 7.7; Monocytes # (A) 0.5 k/uL (0-1.0); Monocytes % (A) 4 %; Neutrophils # (A) 7.7 k/uL (1.3-7.7); Neutrophils % (A) 64 %; Platelet Count 332 k/uL (150-450); RBC 4.56 m/uL (3.80-5.40); RDW 14.7 % (11.5-15.5); WBC 11.9 k/uL (3.8-10.6)
[2021-05-14 19:38] LABS: ALT 13 U/L (4-34); AST 21 U/L (14-36); African American GFR (CKD) >90 (>60 ml/min/1.73 sqM); Albumin 3.5 g/dL (3.5-5.0); Alkaline Phosphatase 63 U/L (38-126); Anion Gap 7 mmol/L; Blood Urea Nitrogen 6 mg/dL (7-17); Calcium 9.1 mg/dL (8.4-10.2); Carbon Dioxide 21 mmol/L (22-30); Chloride 105 mmol/L (98-107); Glucose 91 mg/dL (74-99); Non-African American GFR(CKD) >90 (>60 ml/min/1.73 sqM); Potassium 4.1 mmol/L (3.5-5.1); Sodium 133 mmol/L (137-145); Total Bilirubin 0.4 mg/dL (0.2-1.3); Total Protein 6.7 g/dL (6.3-8.2)
[2021-05-14 19:41] LABS: Amorphous Sediment,Urine Rare /hpf; Appearance,Urine Clear (Clear); Bacteria,Urine Rare /hpf; Bilirubin,Urine Negative (Negative); Blood,Urine Trace (Negative); Color,Urine Light Yellow; Glucose,Urine (UA) Negative (Negative); Ketones,Urine Negative (Negative); Leukocyte Esterase,Urine Negative (Negative); Mucus,Urine Rare /hpf; Nitrite,Urine Negative (Negative); PH, Urine 5.5 (5.0-8.0); Protein,Urine Negative (Negative); RBC,Urine 1 /hpf (0-5); Specific Gravity,Urine 1.005 (1.001-1.035); Squamous Epithelial Cell,Urine 2 /hpf (0-4); Urobilinogen,Urine <2.0 mg/dL (<2.0); WBC,Urine 1 /hpf (0-5)
--- NOTE | 2021-05-14 21:01 | US ---
EXAMINATION TYPE: Transabdominal DATE OF EXAM: 05/14/2021 8:43 PM COMPARISON: OB 04/02/21 CLINICAL HISTORY: vaginal bleeding, lower abdominal cramping/pain. Vaginal discharge and pelvic cramp ing EXAM PERFORMED: Transabdominal (TA) EXAM MEASUREMENTS: GESTATIONAL AGE / DATING Physician Established: (14 weeks/1 days) EDC: 11/11/21 Dates by First Scan: (8 weeks/1 days) EDC: 11/11/21 Dates by Current Scan for: (14 weeks/0 days) EDC: 11/12/21 MATERNAL ANATOMY Uterus: 16.4 x 8.5 x 11.1 cm Right Ovary: 3.7 x 2.9 x 3.3 cm Left Ovary: 3.7 x 3.9 x 3.6 cm Post CDS / Adnexa: wnl Presence of free fluid: no Presence of corpus luteal cyst: no Presence of subchorionic bleed: no GESTATION / SURVEY CRL: 8.02 (14 weeks/0 days) MSD: wnl Yolk Sac (normal less than 6mm): Yolk sac not seen; placenta noted Heart Rate: 163 bpm Rhythm: Normal IUP: Viable IUP Beta HcG (if available): 57510 IMPRESSION: Single live intrauterine at 14 weeks estimated gestational age and without acute abnormalit y.
--- NOTE | 2021-05-14 21:51 | ED ---
General Adult HPI - General Chief complaint: Vaginal Bleeding Stated complaint: 14 wks preg, vaginal bleeding Time Seen by Provider: 05/14/21 18:23 Source: patient, RN notes reviewed Mode of arrival: ambulatory Limitations: no limitations - History of Present Illness Initial comments: 30-year-old female, , presents to the emergency Department with complaints of vaginal bleeding, onset this morning. Patient states the bleeding is brown discharge that began is a scant amount and has increased throughout the day. She does complain of mild lower abdominal cramping that alternates between the right and left side. Patient states she is 14 weeks and reports that her previous in January ended with an ectopic. Patient states she has had 2 ultrasounds confirming the presence of live intrauterine . States she was seen by her MASTER POLICE DETECTIVE on Wednesday for a routine normal exam. Patient denies any known triggers such as vigorous sexual intercourse or demanding physical activity. Denies fever, chills, chest pain, shortness of breath, nausea, vomiting, diarrhea, dysuria, hematuria, or back pain. - Related Data Home Medications Medication Instructions Recorded Confirmed Acetaminophen Tab [Tylenol Tab] 1,000 mg PO Q6HR PRN 05/14/21 05/14/21 [id number] Acid 1 cap PO DAILY 05/14/21 05/14/21 [-U Capsule (formulary)] Allergies Allergy/AdvReac Type Severity Reaction Status Date / Time codeine Allergy Unknown Verified 05/14/21 19:01 hydromorphone [From Dilaudid] Allergy Chest Pain Verified 05/14/21 19:01 nitrofurantoin Allergy Anaphylaxis Verified 05/14/21 19:01 [From Macrobid] morphine AdvReac Unknown Verified 05/14/21 19:01 Review of Systems ROS Statement: Those systems with pertinent positive or pertinent negative responses have been documented in the HPI. ROS Other: All systems not noted in ROS Statement are negative. Past Medical History Past Medical History: No Reported History Additional Past Medical History / Comment(s): Hernia History of Any Multi-Drug Resistant Organisms: None Reported Past Surgical History: Adenoidectomy, Bariatric Surgery, Cholecystectomy, Orthopedic Surgery, Tonsillectomy Past Anesthesia/Blood Transfusion Reactions: No Reported Reaction Past Psychological History: No Psychological Hx Reported Smoking Status: Never smoker Past Alcohol Use History: None Reported Past Drug Use History: None Reported - Past Family History Mother Family Medical History: No Reported History General Exam Limitations: no limitations (Well-developed, well-nourished female in no acute distress. Initial temperature 99.5, pulse 91, respirations 18, blood pressure 150/85, pulse ox 99% on room air.) General appearance: alert, in no apparent distress ENT exam: Present: normal exam, normal oropharynx, mucous membranes moist Neck exam: Present: normal inspection, full ROM. Absent: tenderness, meningismu s, lymphadenopathy Respiratory exam: Present: normal lung sounds bilaterally. Absent: respiratory distress, wheezes, rales, rhonchi, stridor, chest wall tenderness Cardiovascular Exam: Present: regular rate, normal rhythm, normal heart sounds. Absent: systolic murmur, diastolic murmur, rubs, gallop, clicks GI/Abdominal exam: Present: soft, normal bowel sounds. Absent: distended, tenderness, guarding, rebound, rigid Speculum exam: Present: vaginal discharge (Moderate amount of brown discharge noted in vaginal vault. Cervical os is closed.) Back exam: Present: normal inspection. Absent: CVA tenderness (R), CVA tenderness (L) Neurological exam: Present: alert, oriented X3, CN II-XII intact Psychiatric exam: Present: normal affect, normal mood Skin exam: Present: warm, dry, intact, normal color. Absent: rash Course Vital Signs 05/14/21 05/14/21 16:24 22:03 Temperature 99.5 F 98.3 F Pulse Rate 91 74 Respiratory 18 19 Rate Blood Pressure 150/85 150/76 O2 Sat by Pulse 99 99 Oximetry Medical Decision Making - Medical Decision Making This is a 30-year-old female, G3 P Shant, who presents to the emergency department for evaluation of vaginal bleeding at the onset of her 14th week of . Upon exam, patient is well-appearing and in no acute distress. She is tolerating oral intake without difficulty. Abdomen is soft and nontender. Speculum exam doesn't reveal moderate amount of brown discharge. Cervical os is closed. Laboratory studies were obtained showing a slightly elevated white blood cell count as expected in . Her sodium is slightly low at 133, however patient is tolerating oral intake without difficulty. HCG is markedly elevated when compared with previous level. Ultrasound was obtained showing presence of a live intrauterine measuring 14 weeks. No abnormality was seen. I did speak with Dr. Gerber who agrees this patient is suitable for discharge. Instructed to follow up as scheduled. Return parameters were discussed in detail. Patient verbalizes understanding and agrees with this plan. This patient's care was discussed with my attending Dr. Gomez. - Lab Data Result diagrams: 05/14/21 19:20 05/14/21 19:20 Lab Results 05/14/21 05/14/21 05/14/21 Range/Units 19:20 19:20 19:32 WBC 11.9 H (3.8-10.6) k/uL RBC 4.56 (3.80-5.40) m/uL Hgb 11.3 L (11.4-16.0) gm/dL Hct 35.0 (34.0-46.0) % MCV 76.8 L (80.0-100.0) fL MCH 24.9 L (25.0-35.0) pg MCHC 32.4 (31.0-37.0) g/dL RDW 14.7 (11.5-15.5) % Plt Count 332 (150-450) k/uL MPV 7.7 Neutrophils % 64 % Lymphocytes % 28 % Monocytes % 4 % Eosinophils % 1 % Basophils % 0 % Neutrophils # 7.7 (1.3-7.7) k/uL Lymphocytes # 3.4 (1.0-4.8) k/uL Monocytes # 0.5 (0-1.0) k/uL Eosinophils # 0.2 (0-0.7) k/uL Basophils # 0.0 (0-0.2) k/uL Hypochromasia Slight Sodium 133 L (137-145) mmol/L Potassium 4.1 (3.5-5.1) mmol/L Chloride 105 (98-107) mmol/L Carbon Dioxide 21 L (22-30) mmol/L Anion Gap 7 mmol/L BUN 6 L (7-17) mg/dL Creatinine 0.58 (0.52-1.04) mg/dL Est GFR (CKD-EPI)AfAm >90 (>60 ml/min/1.73 sqM) Est GFR (CKD-EPI)NonAf >90 (>60 ml/min/1.73 sqM) Glucose 91 (74-99) mg/dL Calcium 9.1 (8.4-10.2) mg/dL Total Bilirubin 0.4 (0.2-1.3) mg/dL AST 21 (14-36) U/L ALT 13 (4-34) U/L Alkaline Phosphatase 63 (38-126) U/L Total Protein 6.7 (6.3-8.2) g/dL Albumin 3.5 (3.5-5.0) g/dL HCG, Quant 14448.0 mIU/mL Urine Color Light Yellow Urine Appearance Clear (Clear) Urine pH 5.5 (5.0-8.0) Ur Specific [place] 1.005 (1.001-1.035) Urine Protein Negative (Negative) Urine Glucose (UA) Negative (Negative) Urine Ketones Negative (Negative) Urine Blood Trace H (Negative) Urine Nitrite Negative (Negative) Urine Bilirubin Negative (Negative) Urine Urobilinogen <2.0 (<2.0) mg/dL Ur Leukocyte Esterase Negative (Negative) Urine RBC 1 (0-5) /hpf Urine WBC 1 (0-5) /hpf Ur Squamous Epith Cells 2 (0-4) /hpf Amorphous Sediment Rare H (None) /hpf Urine Bacteria Rare H (None) /hpf Urine Mucus Rare H (None) /hpf - Radiology Data Radiology results: report reviewed Transabdominal ultrasound was obtained. Report was reviewed in its entirety. Impression single live intrauterine of 14 weeks estimated gestational age and without acute abnormality. Disposition Clinical Impression: Second trimester bleeding, Threatened Disposition: HOME SELF-CARE Instructions (If sedation given, give patient instructions): Threatened Miscarriage (ED) Additional Instructions: Keep all scheduled follow-up appointments. Call Dr. Maria in the morning to let her know that you were seen in the ER for brown vaginal discharge. Return to the emergency department if you develop any new, worsening, or concerning symptoms (such as bright red bleeding or passing clots). Is patient prescribed a controlled substance at d/c from ED?: No Referrals: Aníbal Cali DO [Primary Care Provider] - 1-2 days Kimberlyn Maria DO [Doctor of Osteopathic Medicine] - 1-2 days Time of Disposition: 21:51
[2021-05-14 22:04] VITALS: BP 150/76; PULSE 74; RESP 19; TEMP 98.3
== END 2021-05-14 22:03 | disposition home or self-care (01) ==
LOC: EC 15:46
DX: O20.0 Threatened abortion (principal); Z88.5 Allergy status to narcotic agent; Z88.3 Allergy status to other anti-infective agents; Z88.6 Allergy status to analgesic agent; Z3A.14 14 weeks gestation of pregnancy
CPT/HCPCS: 36415; 76801; 80053; 81001; 84702; 85025; 99284

== ENCOUNTER 2021-08-07 14:03 | Outpatient (CLI) | payer OTHER ==
[2021-08-07 15:10] VITALS: BP 144/77; PULSE 144; RESP 18; TEMP 97.3
--- NOTE | 2021-08-08 08:26 | P.MSEPDOC ---
Presenting Problems - Arrival Data Date of Arrival on Unit: 08/07/21 Time of Arrival on Unit: 14:03 Mode of Transport: Ambulatory - Complaint OB-Reason for Admission/Chief Complaint: Other Comment: Patient presents to triage with complaint of tightness in upper abdomen near. ribs, racing heart, and headache. Patient reports having seen MFM for elevated blood. pressures during . Medical History - Information : 3 Para: 1 Term: 1 : 0 Abortions: Spontaneous or Elective: 1 Number of Living Children: 1 - Gestational Age Gestational Age by ANITHA (wks/days): 26 Weeks and 2 Days Review of Systems - Review of Systems Constitutional: No problems Breast: No problems ENT: No problems Cardiovascular: No problems Respiratory: No problems Gastrointestinal: No problems Genitourinary: No problems Musculoskeletal: No problems Neurological: No problems Skin: No problems Vital Signs - Temperature Temperature: 97.3 F Temperature Source: Temporal Artery Scan - Pulse Right Lateral Pulse Rate: 144 Pulse Assessment Method: Automatic Cuff - Respirations Respiratory Rate: 18 Oxygen Delivery Method: Room Air O2 Sat by Pulse Oximetry: 97 - Blood Pressure Right Arm Blood Pressure: 144/77 Blood Pressure Mean: 99 Blood Pressure Source: Automatic Cuff Medical Screen Scoring - Assessment - Baby A Baseline FHR: 146 Physician Notification - Physician Notified Physician Notified Date: 08/07/21 Physician Notified Time: 14:48 Physician: Kimberlyn Maria Order Received: Yes - Notification Comment Comment: Dr. Maria reported on paitients c/o chest tightness/pain racing heart rate, and. headache. Repeat blood pressures reported. Featal doppler with heart rate of 140-146bpm. Patient to follow up with MFM for blood pressures. Patient to go to ER for further. evaluation for chest tightness and pain. Maternal Triage Index - Stat/Priority 1 Stat Priority 1: No - Urgent/Priority 2 Urgent Priority 2: No - Prompt/Priority 3 Prompt Priority 3: Yes Criteria Met for Priority 3: blood pressure of 144/77 Disposition - Disposition OB Disposition: Transfer to other dept./facility (Patient instructed to go to ER for evaluation of chest tightness and racing heart rate) Discharge Date: 08/07/21 Discharge Time: 14:59 I agree with the RN Medical Screening Exam: Yes Case reviewed; plan agreed upon as documented in EMR&OBIX.: Yes Comments: Patient has known gestational hypertension and is on labetalol. She has been following with maternal- medicine. Her blood pressures are not higher than she normally has been running. She is advised to follow up with maternal- medicine regarding her blood pressure management. She is advised to go to the emergency room for evaluation of her chest tightness and an racing heart rate to rule out pulmonary embolism. Diagnosis: RELATED CONDITIONS, UNSPECIFIED, SECOND TRIMESTER Additional Diagnoses: Gestational hypertension
== END 2021-08-07 14:59 | disposition home or self-care (01) ==
LOC: FBPOP 14:03
PROVIDERS: ATTEND Obstetrics & Gynecology
DX: O26.92 Pregnancy related conditions, unspecified, second trimester (principal); Z3A.26 26 weeks gestation of pregnancy
CPT/HCPCS: 99213

== ENCOUNTER 2021-09-14 01:18 | Observation (INO) | payer OTHER ==
[2021-09-14 02:08] LABS: Appearance,Urine Clear (Clear); Bilirubin,Urine Negative (Negative); Blood,Urine Negative (Negative); Color,Urine Colorless; Glucose,Urine (UA) Negative (Negative); Ketones,Urine Negative (Negative); Leukocyte Esterase,Urine Negative (Negative); Nitrite,Urine Negative (Negative); PH, Urine 6.5 (5.0-8.0); Protein,Urine Negative (Negative); Specific Gravity,Urine 1.004 (1.001-1.035); Urobilinogen,Urine <2.0 mg/dL (<2.0)
[2021-09-14 02:10] LABS: Basophils # (A) 0.1 k/uL (0-0.2); Basophils % (A) 1 %; Eosinophils # (A) 0.2 k/uL (0-0.7); Eosinophils % (A) 1 %; HCT 31.7 % (34.0-46.0); HGB 10.1 gm/dL (11.4-16.0); Hypochromasia Slight; Lymphocytes # (A) 3.2 k/uL (1.0-4.8); Lymphocytes % (A) 25 %; MCH 24.8 pg (25.0-35.0); MCHC 31.9 g/dL (31.0-37.0); MCV 77.9 fL (80.0-100.0); Mean Platelet Volume 7.4; Microcytosis Slight; Monocytes # (A) 0.7 k/uL (0-1.0); Monocytes % (A) 5 %; Neutrophils # (A) 8.5 k/uL (1.3-7.7); Neutrophils % (A) 66 %; Platelet Count 403 k/uL (150-450); RBC 4.07 m/uL (3.80-5.40); RDW 15.7 % (11.5-15.5); WBC 12.9 k/uL (3.8-10.6)
[2021-09-14 02:15] LABS: ALT 13 U/L (4-34); AST 20 U/L (14-36); African American GFR (CKD) >90 (>60 ml/min/1.73 sqM); Blood Urea Nitrogen 6 mg/dL (7-17); INR 0.9 (<1.2); LDH 447 U/L (313-618); Non-African American GFR(CKD) >90 (>60 ml/min/1.73 sqM); Partial Thromboplastin Time 22.1 sec (22.0-30.0); Prothrombin Time 9.7 sec (9.0-12.0); Uric Acid 3.7 mg/dL (3.7-7.4)
[2021-09-14 02:18] LABS: Creatinine,Urine Random 42.9 mg/dL; Protein/Creatinine Ratio,Urine 0.373
[2021-09-14] MEDS: BETAMET ACET-BETAMETH SOD PHOS 6 MG/ML MDV IM SCH (02:38)
[2021-09-14] MEDS: ACETAMINOPHEN TAB 500 MG TAB PO PRN ×2 (03:36→19:19)
--- NOTE | 2021-09-14 03:45 | US ---
EXAM: US Biophysical Profile Without Non-Stress Testing CLINICAL HISTORY: ITS.REASON US Reason: Unable to obtain NST TECHNIQUE: Real-time ultrasound of the maternal pelvis for biophysical profile evaluation with image documentation. COMPARISON: 05/14/2021 FINDINGS: Limitations: Body habitus. breathing movements: Present. Score 2/2. Gross body movements: Present. Score 2/2. tone: Present. Score 2/2. Qualitative amniotic fluid volume: Within normal limits. Score 2/2. PATTIE: 15.6 cm. Fetus: Single live intrauterine . Heart rate: heart rate measures 150 bpm. Presentation: Breech presentation. IMPRESSION: Normal biophysical profile with score of 8/8.
--- NOTE | 2021-09-14 09:05 | P.HPOB ---
History of Present Illness H&P Date: 09/14/21 Chief Complaint: Headache 31-year-old presents at 31 weeks and 5 days after her baby shower with a headache and elevated blood pressure. She does have gestational hypertension is on labetalol 200 mg twice a day. She noticed that she had a headache this evening and just wasn't feeling very good so came to triage to be evaluated. Her blood pressures were initially elevated and have come down to normal. Her labs were normal except for PC ratio 0.3. I will admit her for course of Celestone and repeat labs. Review of Systems All systems: negative Constitutional: Denies chills, Denies fever Eyes: denies blurred vision, denies pain Ears, nose, mouth and throat: Reports headache, Denies sore throat Cardiovascular: Denies chest pain, Denies shortness of breath Respiratory: Denies cough Gastrointestinal: Denies abdominal pain, Denies diarrhea, Denies nausea, Denies vomiting Genitourinary: Denies dysuria, Denies hematuria Musculoskeletal: Denies myalgias Integumentary: Denies pruritus, Denies rash Neurological: Denies numbness, Denies weakness Psychiatric: Denies anxiety, Denies depression Endocrine: Denies fatigue, Denies weight change Past Medical History Past Medical History: No Reported History Additional Past Medical History / Comment(s): Hernia, ectopic , History of Any Multi-Drug Resistant Organisms: None Reported Past Surgical History: Adenoidectomy, Bariatric Surgery, Cholecystectomy, Orthopedic Surgery, Tonsillectomy Past Anesthesia/Blood Transfusion Reactions: No Reported Reaction Past Psychological History: No Psychological Hx Reported Smoking Status: Never smoker Past Alcohol Use History: None Reported Past Drug Use History: None Reported - Past Family History Mother Family Medical History: No Reported History Medications and Allergies Home Medications Medication Instructions Recorded Confirmed Type Aspirin 81 mg PO DAILY 08/07/21 09/14/21 History Labetalol [Trandate] 200 mg PO BID 08/07/21 09/14/21 History Allergies Allergy/AdvReac Type Severity Reaction Status Date / Time codeine Allergy Unknown Verified 09/14/21 01:45 hydromorphone [From Dilaudid] Allergy Chest Pain Verified 09/14/21 01:45 nitrofurantoin Allergy Anaphylaxis Verified 09/14/21 01:45 [From Macrobid] morphine AdvReac Unknown Verified 09/14/21 01:45 Exam Osteopathic Statement: *. No significant issues noted on an osteopathic structural exam other than those noted in the History and Physical/Consult. Vital Signs Temp Pulse Resp BP Pulse Ox 09/14/21 07:51 97.6 F 86 18 120/76 09/14/21 03:30 98.1 F 76 18 155/104 98 Intake and Output 09/13/21 09/14/21 09/14/21 22:59 06:59 14:59 Other: # Voids 1 Weight 196.859 kg 196.859 kg Heart: Regular rate and rhythm Lungs: Clear to auscultation bilaterally Abdomen: Soft, nontender, gravid Extremities: Negative Homans sign, 1+/4 DTR Results Result Diagrams: 09/14/21 01:34 09/14/21 01:34 Abnormal Lab Results - Last 24 Hours (Table) 09/14/21 09/14/21 09/14/21 Range/Units 01:34 01:34 01:34 WBC 12.9 H (3.8-10.6) k/uL Hgb 10.1 L (11.4-16.0) gm/dL Hct 31.7 L (34.0-46.0) % MCV 77.9 L (80.0-100.0) fL MCH 24.8 L (25.0-35.0) pg RDW 15.7 H (11.5-15.5) % Neutrophils # 8.5 H (1.3-7.7) k/uL Fibrinogen 741 H (200-500) mg/dL BUN 6 L (7-17) mg/dL Assessment and Plan (1) Gestational hypertension Current Visit: Yes Status: Acute Code(s): O13.9 - GESTATIONAL HTN W/O SIGNIFICANT PROTEINURIA, UNSP TRIMESTER SNOMED Code(s): 41100764 (2) 31 weeks gestation of Current Visit: Yes Status: Acute Code(s): Z3A.31 - 31 WEEKS GESTATION OF SNOMED Code(s): 48100525 Plan: 1. Admit for Celestone and repeat labs 2. Monitor blood pressures closely 3. We are unable to get the baby on the monitor for inadequate NST so did a BPP yesterday and it was 8 out of 8
[2021-09-14] MEDS: LABETALOL 200 MG TAB PO SCH ×2 (09:12→21:09)
[2021-09-14] MEDS: FAMOTIDINE 20 MG TAB PO SCH ×2 (09:52→21:09)
--- NOTE | 2021-09-14 17:10 | P.MSEPDOC ---
Presenting Problems - Arrival Data Date of Arrival on Unit: 09/14/21 Time of Arrival on Unit: 01:18 Mode of Transport: Ambulatory - Complaint OB-Reason for Admission/Chief Complaint: Headache, Pain, PIH, Dizziness Comment: RUQ pain Medical History - Information : 3 Para: 1 Term: 1 : 0 Abortions: Spontaneous or Elective: 1 Number of Living Children: 1 - Gestational Age Gestational Age by ANITHA (wks/days): 31 Weeks and 5 Days - History Complications: Other Comment: HTN during Review of Systems - Review of Systems Constitutional: No problems Breast: No problems ENT: No problems Cardiovascular: No problems Respiratory: No problems Gastrointestinal: No problems Genitourinary: No problems Musculoskeletal: No problems Neurological: Dizziness Skin: No problems Vital Signs - Temperature Temperature: 98.7 F Temperature Source: Oral - Pulse Right Pulse Oximetery Pulse Rate: 86 Pulse Assessment Method: Automatic Cuff - Respirations Respiratory Rate: 16 Oxygen Delivery Method: Room Air O2 Sat by Pulse Oximetry: 97 - Blood Pressure Right Arm Blood Pressure: 128/72 Blood Pressure Mean: 90 Blood Pressure Source: Automatic Cuff Medical Screen Scoring - Assessment - Baby A Baseline FHR: 136 Physician Notification - Physician Notified Physician Notified Date: 09/14/21 Physician Notified Time: 01:41 Physician: Sasha Mckee New Order Received: Yes - Notification Comment Comment: 09/14/21 @ 0141: RN reported to Dr. Mckee maternal/ status, c/o STACK x5 hours unrelieved by Tylenol at home, BPs in triage, SOB, nausea/vomiting, RUQ pain. Pt is taking 200mg. Labetalol BID at home. RN reported to Dr. Mckee of being unable to trace FHTs. RN to. order pre-eclampsia workup, and a BPP US for fetus d/t inability to obtain an NST. BPs. to cycle Q20min. RN to call Dr. Mckee once all are resulted, or sooner with concerns. 09/14/21 @ 0232: RN called Dr. Mckee and reported on elevated labs. PCR is 0.373. US is aware of the order for BPP, and is on their way in to perform. RN to order dose of celestone. now. Dr. Mckee is not planning to transfer patient at this time. RN to call Dr. Mckee back when US results are available. 09/14/21 @ 0307: RN reported to Dr. Mckee on maternal/ status, BPP US results of 10/27. BPs have been WNL last 2 serial BP checks. RN to OBV patient,, BPs Q4H while awake, does not. need NST d/t BPP 10/27, repeat lab work Wednesday 6am, pt to receive 2nd dose Celestone when. due, RN may order 1000mg Tylenol Q6H PRN for Pain. Maternal Triage Index - Maternal Triage Index Presenting for scheduled procedure w/no complaint: No - Stat/Priority 1 Stat Priority 1: No - Urgent/Priority 2 Urgent Priority 2: Yes Provider Notified: Sasha Mckee Provider Notified Time: 01:41 Criteria Met for Priority 2: Initial BP 155/104, repeat BP 144/88; symptomatic - STACK, NV, RUQ pain Disposition - Disposition OB Disposition: Observe I agree with the RN Medical Screening Exam: Yes Case reviewed; plan agreed upon as documented in EMR&OBIX.: Yes Diagnosis: HEADACHE, UNSPECIFIED
--- NOTE | 2021-09-14 17:15 | P.PN ---
Progress Note - Text Progress Note Date: 09/14/21 I did review this case with my maternal- medicine specialist, Dr. Fuentes, who has also been taking the patient through this . He advised to keep her through the day and night and give her second dose of steroids. She does have an appointment with him tomorrow and after discussion it was determined she can be discharged home tomorrow after her second dose of Celestone another lab draw and attend her appointment where he will see her and do an ultrasound.
[2021-09-15 02:26] VITALS: RESP 18
[2021-09-15] MEDS: BETAMET ACET-BETAMETH SOD PHOS 6 MG/ML MDV IM SCH (02:27)
[2021-09-15 05:52] LABS: Appearance,Urine Clear (Clear); Bacteria,Urine Occasional /hpf; Bilirubin,Urine Negative (Negative); Blood,Urine Negative (Negative); Color,Urine Light Yellow; Glucose,Urine (UA) Negative (Negative); Ketones,Urine Negative (Negative); Leukocyte Esterase,Urine Trace (Negative); Mucus,Urine Rare /hpf; Nitrite,Urine Negative (Negative); PH, Urine 6.5 (5.0-8.0); Protein,Urine Negative (Negative); RBC,Urine <1 /hpf (0-5); Specific Gravity,Urine 1.007 (1.001-1.035); Squamous Epithelial Cell,Urine 2 /hpf (0-4); Urobilinogen,Urine <2.0 mg/dL (<2.0); WBC,Urine 1 /hpf (0-5)
[2021-09-15 05:56] LABS: Creatinine,Urine Random 65.9 mg/dL; Protein/Creatinine Ratio,Urine 0.212
[2021-09-15 07:45] LABS: Basophils % (A) 0 %; Eosinophils % (A) 0 %; HCT 28.9 % (34.0-46.0); HGB 9.2 gm/dL (11.4-16.0); Hypochromasia Moderate; Lymphocytes # (A) 1.5 k/uL (1.0-4.8); Lymphocytes % (A) 12 %; MCH 25.1 pg (25.0-35.0); MCHC 31.6 g/dL (31.0-37.0); MCV 79.3 fL (80.0-100.0); Mean Platelet Volume 7.5; Monocytes # (A) 0.3 k/uL (0-1.0); Monocytes % (A) 3 %; Neutrophils % (A) 84 %; Platelet Count 344 k/uL (150-450); RBC 3.65 m/uL (3.80-5.40); RDW 15.8 % (11.5-15.5); WBC 11.9 k/uL (3.8-10.6)
[2021-09-15] MEDS: FAMOTIDINE 20 MG TAB PO SCH (07:46)
[2021-09-15] MEDS: LABETALOL 200 MG TAB PO SCH (07:46)
[2021-09-15 07:48] VITALS: BP 134/77; PULSE 99; TEMP 97.9
[2021-09-15 08:05] LABS: ALT 14 U/L (4-34); AST 16 U/L (14-36); African American GFR (CKD) >90 (>60 ml/min/1.73 sqM); Blood Urea Nitrogen 4 mg/dL (7-17); LDH 367 U/L (313-618); Non-African American GFR(CKD) >90 (>60 ml/min/1.73 sqM); Uric Acid 3.8 mg/dL (3.7-7.4)
[2021-09-15 08:11] LABS: INR 0.9 (<1.2); Partial Thromboplastin Time 22.3 sec (22.0-30.0)
--- NOTE | 2021-09-15 09:06 | P.DS ---
Providers Date of admission: 09/14/21 03:21 Expected date of discharge: 09/15/21 Attending physician: Sasha Mckee Primary care physician: Stated None Hospital Course: See history and physical for details the patient admission. Briefly this is a 31-year-old female 3 para 1 at 31-5/7 weeks who presented with severe headache that did not go with Tylenol. She was also having some leaves of nausea. She was found to have elevated blood pressures on arrival and labs did show elevated protein to creatinine ratio at 0.37. Labs were repeated and her PC ratio did go down to 0.2. Dr. Mckee did discuss with Dr. Fuentes at maternal- medicine. And he does plan to see her for her appointment this afternoon on 09/15/2021. She did receive 2 doses of steroids while in the hospital here. She states her headache has not changed since arrival. She is advised to go directly to maternal medicine this afternoon. She is advised after discharge from there, to return if she has any new symptoms including severe headaches, blurry vision, epigastric pain, or elevated blood pressures at home. Patient Condition at Discharge: Stable Plan - Discharge Summary New Discharge Prescriptions: No Action Labetalol [Trandate] 200 mg PO BID Aspirin 81 mg PO DAILY Discharge Medication List Aspirin 81 mg PO DAILY 08/07/21 [History] Labetalol [Trandate] 200 mg PO BID 08/07/21 [History] Follow up Appointment(s)/Referral(s): Kimberlyn Maria DO [Doctor of Osteopathic Medicine] - 1 Week Activity/Diet/Wound Care/Special Instructions: Activity as tolerated. Diet as tolerated. Discharge Disposition: HOME SELF-CARE
== END 2021-09-15 10:38 | disposition home or self-care (01) ==
LOC: FBPOP 01:18 → 4FBP 03:21
PROVIDERS: ADMIT Obstetrics & Gynecology; ATTEND Obstetrics & Gynecology
DX: O13.3 Gestational [pregnancy-induced] hypertension without significant proteinuria, third trimester (principal); Z3A.31 31 weeks gestation of pregnancy; O26.893 Other specified pregnancy related conditions, third trimester; R51.9 Headache, unspecified; Z79.899 Other long term (current) drug therapy; Z79.82 Long term (current) use of aspirin; Z88.5 Allergy status to narcotic agent; Z88.1 Allergy status to other antibiotic agents; Z71.9 Counseling, unspecified; Z90.49 Acquired absence of other specified parts of digestive tract
CPT/HCPCS: 96372 ×2; 82570 ×2; 84156 ×2; 82565 ×2; 83615 ×2; 84450 ×2; 84460 ×2; 84520 ×2; 84550 ×2; 85025 ×2; 85384 ×2; 85610 ×2; 85730 ×2; 81003; 81001; 76819; G0463; G0378 ×2; J0702 ×2; 99215

== ENCOUNTER 2021-09-19 16:15 | Outpatient (CLI) | payer OTHER ==
--- NOTE | 2021-09-19 17:30 | US ---
EXAMINATION TYPE: US OB BPP wo non-stress DATE OF EXAM: 09/19/2021 COMPARISON: NONE CLINICAL HISTORY: chronic HTN EXAM PERFORMED: Transabdominal (TA) BPP PARAMETERS: PRESENTATION: Breech HEART RATE: 127 bpm RHYTHM: Normal PATTIE: 127 DIAPHRAGM IMAGED: yes BPP SCORIN. Breathin (1 episode of breathing of 30 second duration in 30 minutes of scanning time) 2. Movement: 2 (at least 3 discrete body movements in 30 minutes) 3. Tone: 2 (1 episode of active flexion/extension of limb) 4. PATTIE: 2 (PATTIE index > 5cm) TOTAL SCORE: 8 / 8
--- NOTE | 2021-09-20 12:12 | P.MSEPDOC ---
Presenting Problems - Arrival Data Date of Arrival on Unit: 09/19/21 Time of Arrival on Unit: 16:15 Mode of Transport: Ambulatory - Complaint OB-Reason for Admission/Chief Complaint: NST Comment: pt presents to triage for NST and BPP per written order for Chronic HTN, I 10 code Medical History - Gestational Age Gestational Age by ANITHA (wks/days): 32 Weeks and 3 Days - History Complications: Chronic HTN Review of Systems - Review of Systems Constitutional: No problems Breast: No problems ENT: No problems Cardiovascular: No problems Respiratory: No problems Gastrointestinal: No problems Genitourinary: No problems Musculoskeletal: No problems Neurological: No problems Skin: No problems Medical Screen Scoring - Assessment - Baby A Baseline FHR: 140 Heart Rate - NICHD Category: Category I (Normal) NST: Reactive Physician Notification - Physician Notified Physician Notified Date: 09/19/21 Physician Notified Time: 17:00 Physician: Kimberlyn Maria - Notification Comment Comment: pt presents to triage for NST and BPP per written order for Chronic HTN, I 10 code, reactive nst, 8/8 results for BPP, pt discharged home Maternal Triage Index - Maternal Triage Index Presenting for scheduled procedure w/no complaint: Yes - Scheduled/Requesting Priority 5 Scheduled/Requesting Priority 5: Yes Criteria Met for Priority 5: pt presents to triage for NST and BPP per written order for Chronic HTN, I 10 code Disposition - Disposition OB Disposition: Triage, Discharge to home, Written follow up instructions reviewed Discharge Date: 09/19/21 Discharge Time: 17:05 I agree with the RN Medical Screening Exam: Yes Case reviewed; plan agreed upon as documented in EMR&OBIX.: Yes Diagnosis: SUPERVISION OF HIGH RISK , UNSP, THIRD TRIMESTER
== END 2021-09-19 17:05 | disposition home or self-care (01) ==
LOC: FBPOP 16:15
PROVIDERS: ATTEND Obstetrics & Gynecology
DX: O09.93 Supervision of high risk pregnancy, unspecified, third trimester (principal); Z3A.32 32 weeks gestation of pregnancy
CPT/HCPCS: 59025; 76819

== ENCOUNTER 2021-09-23 11:31 | Outpatient (CLI) | payer OTHER ==
[2021-09-23 12:30] VITALS: BP 123/75; PULSE 106; RESP 18; TEMP 98.1
== END 2021-09-23 12:01 | disposition home or self-care (01) ==
LOC: FBPOP 11:31
PROVIDERS: ATTEND Obstetrics & Gynecology
DX: O10.013 Pre-existing essential hypertension complicating pregnancy, third trimester (principal)
CPT/HCPCS: 59025

== ENCOUNTER 2021-09-25 22:02 | Emergency (ER) | payer OTHER ==
[2021-09-25] MEDS ORDERED: methylPREDNISolone SOD SUCCI 125 MG/2 ML VIAL IV STA (22:19)
[2021-09-25] MEDS ORDERED: hydrOXYzine HCL 25 MG TAB PO STA (22:19)
[2021-09-25] MEDS ORDERED: FAMOTIDINE 20 MG/2 ML VIAL IV STA (22:19)
[2021-09-25] MEDS ORDERED: SODIUM CHLORIDE 0.9% 500 ML 500 ML IV STA (22:19)
[2021-09-25 22:27] VITALS: TEMP 98.2
--- NOTE | 2021-09-25 22:40 | ED ---
Allergic Reaction HPI - General Chief complaint: Allergic Reaction Stated complaint: poss alergic reaction Time Seen by Provider: 09/25/21 22:17 Source: patient, RN notes reviewed, old records reviewed Mode of arrival: EMS Limitations: no limitations - History of Present Illness Initial Comments: This is a 31-year-old female to the emergency department for evaluation. Patient comes in for taking amoxicillin for tooth infection. Patient has history of taking amoxicillin and having a little traction as well as taking amoxicillin and not having ALLERGIC reaction. Patient decided taken for tooth pain and tooth infection began having significant itching over the course of her extreme body. Entire body. Patient is also MD Complaint: allergic reaction -: hour(s) Exposure: unknown Symptoms: rash, itching Severity: mild Treatment Prior to Arrival: none Previous Allergy History: none - Related Data Home Medications Medication Instructions Recorded Confirmed Aspirin 81 mg PO DAILY 08/07/21 10/06/21 Labetalol [Trandate] 200 mg PO BID 08/07/21 10/06/21 Vit No.179/Iron/Folic 1 tab PO DAILY 09/19/21 10/06/21 [ Tablet] Famotidine [Pepcid] 20 mg PO BID 09/25/21 10/06/21 Allergies Allergy/AdvReac Type Severity Reaction Status Date / Time amoxicillin Allergy Anaphylaxis Verified 10/02/21 10:41 codeine Allergy Unknown Verified 10/02/21 10:41 hydromorphone [From Dilaudid] Allergy Chest Pain Verified 10/02/21 10:41 nitrofurantoin Allergy Anaphylaxis Verified 10/02/21 10:41 [From Macrobid] morphine AdvReac Unknown Verified 10/02/21 10:41 Review of Systems ROS Statement: Those systems with pertinent positive or pertinent negative responses have been documented in the HPI. ROS Other: All systems not noted in ROS Statement are negative. Past Medical History Past Medical History: No Reported History Additional Past Medical History / Comment(s): Hernia, ectopic , History of Any Multi-Drug Resistant Organisms: None Reported Past Surgical History: Adenoidectomy, Bariatric Surgery, Cholecystectomy, Orthopedic Surgery, Tonsillectomy Past Anesthesia/Blood Transfusion Reactions: No Reported Reaction Past Psychological History: No Psychological Hx Reported Smoking Status: Never smoker - Past Family History Mother Family Medical History: No Reported History General Exam Limitations: no limitations General appearance: alert, in no apparent distress Head exam: Present: atraumatic, normocephalic, normal inspection Eye exam: Present: normal appearance, PERRL, EOMI. Absent: scleral icterus, conjunctival injection, periorbital swelling ENT exam: Present: normal exam, mucous membranes moist Neck exam: Present: normal inspection. Absent: tenderness, meningismus, lymphadenopathy Respiratory exam: Present: normal lung sounds bilaterally. Absent: respiratory distress, wheezes, rales, rhonchi, stridor Cardiovascular Exam: Present: regular rate, normal rhythm, normal heart sounds. Absent: systolic murmur, diastolic murmur, rubs, gallop, clicks GI/Abdominal exam: Present: soft, normal bowel sounds. Absent: distended, tenderness, guarding, rebound, rigid Extremities exam: Present: normal inspection, full ROM, normal capillary refill. Absent: tenderness, pedal edema, joint swelling, calf tenderness Back exam: Present: normal inspection Neurological exam: Present: alert, oriented X3, CN II-XII intact Psychiatric exam: Present: normal affect, normal mood Skin exam: Present: warm, dry, intact, normal color. Absent: rash Course Vital Signs 09/25/21 09/25/21 09/26/21 22:04 22:27 03:46 Temperature 98.2 F Pulse Rate 95 72 Respiratory 16 20 16 Rate Blood Pressure 134/81 144/88 O2 Sat by Pulse 99 96 Oximetry - Reevaluation(s) Reevaluation #1: 09/27/21 Medical record is reviewed Reevaluation #2: 09/27/21 Patient informed of results and questions are answered Reevaluation #3: 09/27/21 Patient symptoms are improved - Consultations Consultation #1: Spoke with on-call OB they can see patient in the office Medical Decision Making - Medical Decision Making 31-year-old female DF for evaluation of positive with ALLERGIC reaction. Patient symptoms of ALLERGIC reaction are improved. Was seen by OB's here in the ER for evaluation regards to with chest this time patient is not labor, is normal she can be discharged home - Lab Data Result diagrams: 09/26/21 01:51 09/26/21 01:51 Lab Results 09/25/21 09/25/21 09/26/21 Range/Units 22:40 23:50 01:51 WBC 20.8 H (3.8-10.6) k/uL RBC 4.33 (3.80-5.40) m/uL Hgb 10.6 L (11.4-16.0) gm/dL Hct 33.3 L (34.0-46.0) % MCV 77.0 L (80.0-100.0) fL MCH 24.4 L (25.0-35.0) pg MCHC 31.7 (31.0-37.0) g/dL RDW 15.6 H (11.5-15.5) % Plt Count 411 (150-450) k/uL MPV 7.2 Neutrophils % 91 % Lymphocytes % 7 % Monocytes % 1 % Eosinophils % 0 % Basophils % 0 % Neutrophils # 18.9 H (1.3-7.7) k/uL Lymphocytes # 1.5 (1.0-4.8) k/uL Monocytes # 0.2 (0-1.0) k/uL Eosinophils # 0.0 (0-0.7) k/uL Basophils # 0.0 (0-0.2) k/uL Hypochromasia Moderate Microcytosis Slight PT (9.0-12.0) sec INR (<1.2) APTT (22.0-30.0) sec Sodium (137-145) mmol/L Potassium (3.5-5.1) mmol/L Chloride (98-107) mmol/L Carbon Dioxide (22-30) mmol/L Anion Gap mmol/L BUN (7-17) mg/dL Creatinine (0.52-1.04) mg/dL Est GFR (CKD-EPI)AfAm (>60 ml/min/1.73 sqM) Est GFR (CKD-EPI)NonAf (>60 ml/min/1.73 sqM) Glucose (74-99) mg/dL Calcium (8.4-10.2) mg/dL Phosphorus (2.5-4.5) mg/dL Magnesium (1.6-2.3) mg/dL Total Bilirubin (0.2-1.3) mg/dL AST (14-36) U/L ALT (4-34) U/L Alkaline Phosphatase (38-126) U/L Total Protein (6.3-8.2) g/dL Albumin (3.5-5.0) g/dL Urine Color Yellow Urine Appearance Cloudy H (Clear) Urine pH 6.0 (5.0-8.0) Ur Specific [place] 1.012 (1.001-1.035) Urine Protein 1+ H (Negative) Urine Glucose (UA) Negative (Negative) Urine Ketones Negative (Negative) Urine Blood Negative (Negative) Urine Nitrite Negative (Negative) Urine Bilirubin Negative (Negative) Urine Urobilinogen <2.0 (<2.0) mg/dL Ur Leukocyte Esterase Moderate H (Negative) Urine RBC 2 (0-5) /hpf Urine WBC 10 H (0-5) /hpf Ur Squamous Epith Cells 4 (0-4) /hpf Urine Bacteria Many H (None) /hpf Hyaline Casts 4 H (0-2) /lpf Urine Mucus Occasional H (None) /hpf Fibronectin Negative (Negative) 09/26/21 09/26/21 Range/Units 01:51 01:51 WBC (3.8-10.6) k/uL RBC (3.80-5.40) m/uL Hgb (11.4-16.0) gm/dL Hct (34.0-46.0) % MCV (80.0-100.0) fL MCH (25.0-35.0) pg MCHC (31.0-37.0) g/dL RDW (11.5-15.5) % Plt Count (150-450) k/uL MPV Neutrophils % % Lymphocytes % % Monocytes % % Eosinophils % % Basophils % % Neutrophils # (1.3-7.7) k/uL Lymphocytes # (1.0-4.8) k/uL Monocytes # (0-1.0) k/uL Eosinophils # (0-0.7) k/uL Basophils # (0-0.2) k/uL Hypochromasia Microcytosis PT 9.6 (9.0-12.0) sec INR 0.9 (<1.2) APTT 23.2 (22.0-30.0) sec Sodium 134 L (137-145) mmol/L Potassium 4.4 (3.5-5.1) mmol/L Chloride 108 H (98-107) mmol/L Carbon Dioxide 19 L (22-30) mmol/L Anion Gap 7 mmol/L BUN 7 (7-17) mg/dL Creatinine 0.60 (0.52-1.04) mg/dL Est GFR (CKD-EPI)AfAm >90 (>60 ml/min/1.73 sqM) Est GFR (CKD-EPI)NonAf >90 (>60 ml/min/1.73 sqM) Glucose 131 H (74-99) mg/dL Calcium 8.8 (8.4-10.2) mg/dL Phosphorus 4.1 (2.5-4.5) mg/dL Magnesium 1.7 (1.6-2.3) mg/dL Total Bilirubin 0.3 (0.2-1.3) mg/dL AST 18 (14-36) U/L ALT 13 (4-34) U/L Alkaline Phosphatase 105 (38-126) U/L Total Protein 6.9 (6.3-8.2) g/dL Albumin 3.5 (3.5-5.0) g/dL Urine Color Urine Appearance (Clear) Urine pH (5.0-8.0) Ur Specific [place] (1.001-1.035) Urine Protein (Negative) Urine Glucose (UA) (Negative) Urine Ketones (Negative) Urine Blood (Negative) Urine Nitrite (Negative) Urine Bilirubin (Negative) Urine Urobilinogen (<2.0) mg/dL Ur Leukocyte Esterase (Negative) Urine RBC (0-5) /hpf Urine WBC (0-5) /hpf Ur Squamous Epith Cells (0-4) /hpf Urine Bacteria (None) /hpf Hyaline Casts (0-2) /lpf Urine Mucus (None) /hpf Fibronectin (Negative) - Radiology Data Radiology results: report reviewed (Ultrasound of is normal), image reviewed Disposition Clinical Impression: Allergic reaction, Allergic reaction to drug, Urticaria, , 31 weeks gestation of Disposition: HOME SELF-CARE Condition: Good Instructions (If sedation given, give patient instructions): Urticaria (ED) Is patient prescribed a controlled substance at d/c from ED?: No Referrals: Aníbal Cali DO [Primary Care Provider] - 1-2 days Time of Disposition: 03:30
[2021-09-25] MEDS ORDERED: diphenhydrAMINE 50 MG/ML 1 ML VIAL IVP STA (22:54)
[2021-09-25 23:41] LABS: Appearance,Urine Cloudy (Clear); Bacteria,Urine Many /hpf; Bilirubin,Urine Negative (Negative); Blood,Urine Negative (Negative); Color,Urine Yellow; Glucose,Urine (UA) Negative (Negative); Hyaline Casts,Urine 4 /lpf (0-2); Ketones,Urine Negative (Negative); Leukocyte Esterase,Urine Moderate (Negative); Mucus,Urine Occasional /hpf; Nitrite,Urine Negative (Negative); Protein,Urine 1+ (Negative); RBC,Urine 2 /hpf (0-5); Specific Gravity,Urine 1.012 (1.001-1.035); Squamous Epithelial Cell,Urine 4 /hpf (0-4); Urobilinogen,Urine <2.0 mg/dL (<2.0); WBC,Urine 10 /hpf (0-5)
[2021-09-26 02:16] LABS: Basophils % (A) 0 %; Eosinophils % (A) 0 %; HCT 33.3 % (34.0-46.0); HGB 10.6 gm/dL (11.4-16.0); Hypochromasia Moderate; Lymphocytes # (A) 1.5 k/uL (1.0-4.8); Lymphocytes % (A) 7 %; MCH 24.4 pg (25.0-35.0); MCHC 31.7 g/dL (31.0-37.0); Mean Platelet Volume 7.2; Microcytosis Slight; Monocytes # (A) 0.2 k/uL (0-1.0); Monocytes % (A) 1 %; Neutrophils # (A) 18.9 k/uL (1.3-7.7); Neutrophils % (A) 91 %; Platelet Count 411 k/uL (150-450); RBC 4.33 m/uL (3.80-5.40); RDW 15.6 % (11.5-15.5); WBC 20.8 k/uL (3.8-10.6)
[2021-09-26 02:21] LABS: INR 0.9 (<1.2); Partial Thromboplastin Time 23.2 sec (22.0-30.0); Prothrombin Time 9.6 sec (9.0-12.0)
[2021-09-26 02:26] LABS: ALT 13 U/L (4-34); AST 18 U/L (14-36); African American GFR (CKD) >90 (>60 ml/min/1.73 sqM); Albumin 3.5 g/dL (3.5-5.0); Alkaline Phosphatase 105 U/L (38-126); Anion Gap 7 mmol/L; Blood Urea Nitrogen 7 mg/dL (7-17); Calcium 8.8 mg/dL (8.4-10.2); Carbon Dioxide 19 mmol/L (22-30); Chloride 108 mmol/L (98-107); Glucose 131 mg/dL (74-99); Magnesium 1.7 mg/dL (1.6-2.3); Non-African American GFR(CKD) >90 (>60 ml/min/1.73 sqM); Phosphorus 4.1 mg/dL (2.5-4.5); Potassium 4.4 mmol/L (3.5-5.1); Sodium 134 mmol/L (137-145); Total Bilirubin 0.3 mg/dL (0.2-1.3); Total Protein 6.9 g/dL (6.3-8.2)
[2021-09-26 03:47] VITALS: BP 144/88; PULSE 72; RESP 16
--- NOTE | 2021-09-26 04:15 | US ---
EXAM: US , Transvaginal CLINICAL HISTORY: ITS.REASON US Reason: abdominal TECHNIQUE: Real-time transvaginal obstetrical ultrasound of the maternal pelvis and a first trimester with image documentation. Transvaginal imaging was used for better evaluation of the fetus and adnexa. COMPARISON: Comparison made to prior OB ultrasound from September 14, 2021. FINDINGS: Gestation: There is a single live IUP with heart rate measured 140 bpm. The presentation is breech with a large genital visualized. The BPP score is 8/8. Placenta/amniotic fluid: The PATTIE is normal measuring 16.1 cm. Uterus/cervix: Unremarkable. No myometrial mass. Ovaries: Unremarkable. No mass. Free fluid: No free fluid. IMPRESSION: Single live IUP with heart rate measured 140 bpm. The biophysical profile score is 8/8.
== END 2021-09-26 03:47 | disposition home or self-care (01) ==
LOC: EC 22:02
DX: O9A.213 Injury, poisoning and certain other consequences of external causes complicating pregnancy, third trimester (principal); L50.9 Urticaria, unspecified; T36.0X5A Adverse effect of penicillins, initial encounter; Z3A.31 31 weeks gestation of pregnancy; Z88.0 Allergy status to penicillin; Z88.5 Allergy status to narcotic agent; Z88.3 Allergy status to other anti-infective agents
CPT/HCPCS: 36415; 82731; 80053; 83735; 84100; 85025; 85610; 85730; 81001; 76819; 99284; 96374; 96375; J1200; J2930

== ENCOUNTER 2021-09-26 16:49 | Outpatient (CLI) | payer OTHER ==
[2021-09-26 17:39] VITALS: BP 130/80; PULSE 85; RESP 16; TEMP 97.2
== END 2021-09-26 17:17 | disposition home or self-care (01) ==
LOC: FBPOP 16:49
PROVIDERS: ATTEND Obstetrics & Gynecology
DX: I10 Essential (primary) hypertension (principal)
CPT/HCPCS: 59025

== ENCOUNTER 2021-09-29 16:08 | Outpatient (CLI) | payer OTHER ==
[2021-09-29 17:21] VITALS: BP 134/80; PULSE 100; RESP 18; TEMP 98
--- NOTE | 2021-09-30 21:00 | P.MSEPDOC ---
Presenting Problems - Arrival Data Date of Arrival on Unit: 09/29/21 Time of Arrival on Unit: 16:08 Mode of Transport: Ambulatory - Complaint OB-Reason for Admission/Chief Complaint: NST Comment: routine NST Medical History - Information : 3 Para: 1 Term: 1 : 0 Abortions: Spontaneous or Elective: 1 Number of Living Children: 1 - Gestational Age Gestational Age by ANITHA (wks/days): 33 Weeks and 6 Days Review of Systems - Review of Systems Constitutional: No problems Breast: No problems ENT: No problems Cardiovascular: No problems Respiratory: No problems Gastrointestinal: No problems Genitourinary: No problems Musculoskeletal: No problems Neurological: No problems Skin: No problems Vital Signs - Temperature Temperature: 98.0 F Temperature Source: Temporal Artery Scan - Pulse Right Pulse Oximetery Pulse Rate: 100 Pulse Assessment Method: Pulse Oximetry - Respirations Respiratory Rate: 18 Oxygen Delivery Method: Room Air O2 Sat by Pulse Oximetry: 98 - Blood Pressure Right Arm Blood Pressure: 134/80 Blood Pressure Mean: 98 Blood Pressure Source: Automatic Cuff Medical Screen Scoring - Uterine Contractions Frequency From (mins): 0 Frequency To (mins): 0 - Assessment - Baby A Baseline FHR: 145 Heart Rate - NICHD Category: Category I (Normal) NST: Reactive Physician Notification - Physician Notified Physician Notified Date: 09/29/21 Physician Notified Time: 17:08 Physician: Sasha Mckee Order Received: Yes Maternal Triage Index - Maternal Triage Index Presenting for scheduled procedure w/no complaint: Yes - Scheduled/Requesting Priority 5 Scheduled/Requesting Priority 5: Yes Criteria Met for Priority 5: NST Disposition - Disposition OB Disposition: Discharge to home Discharge Date: 09/29/21 Discharge Time: 17:13 I agree with the RN Medical Screening Exam: Yes Case reviewed; plan agreed upon as documented in EMR&OBIX.: Yes Diagnosis: OBESITY COMPLICATING , THIRD TRIMESTER
== END 2021-09-29 17:13 | disposition home or self-care (01) ==
LOC: FBPOP 16:08
PROVIDERS: ATTEND Obstetrics & Gynecology
DX: O99.213 Obesity complicating pregnancy, third trimester (principal); Z3A.33 33 weeks gestation of pregnancy
CPT/HCPCS: 59025; G0463; 99213

== ENCOUNTER 2021-10-02 10:23 | Outpatient (CLI) | payer OTHER ==
--- NOTE | 2021-10-02 12:20 | US ---
EXAMINATION TYPE: US OB BPP wo non-stress DATE OF EXAM: 10/02/2021 COMPARISON: US 09/27/2019 CLINICAL HISTORY: gest HTN. Gestational hypertension. Hx ectopic and left fallopian tube removed. . *Image quality limited due to body habitus. EXAM PERFORMED: Transabdominal (TA) BPP PARAMETERS: PRESENTATION: Breech HEART RATE: 144 bpm RHYTHM: Normal PATTIE: 14.8 DIAPHRAGM IMAGED: yes BPP SCORIN. Breathin (1 episode of breathing of 30 second duration in 30 minutes of scanning time) 2. Movement: 2 (at least 3 discrete body movements in 30 minutes) 3. Tone: 2 (1 episode of active flexion/extension of limb) 4. PATTIE: 2 (PATTIE index > 5cm) TOTAL SCORE: 8 / 8
[2021-10-02 13:12] VITALS: BP 170/83; PULSE 103; RESP 17; TEMP 97.9
--- NOTE | 2021-10-04 21:23 | P.MSEPDOC ---
Presenting Problems - Arrival Data Date of Arrival on Unit: 10/02/21 Time of Arrival on Unit: 10:23 Mode of Transport: Ambulatory - Complaint OB-Reason for Admission/Chief Complaint: NST, Other Comment: pt presented to triage for twice a week nst, and weekly BPP per written orders by Dr. Maria, I 10 Code Medical History - Information : 3 Para: 1 Term: 1 : 0 Abortions: Spontaneous or Elective: 1 Number of Living Children: 1 - Gestational Age Gestational Age by ANITHA (wks/days): 34 Weeks and 2 Days - History Complications: Other Comment: gest HTN Review of Systems - Review of Systems Constitutional: No problems Breast: No problems ENT: No problems Cardiovascular: No problems Respiratory: No problems Gastrointestinal: No problems Genitourinary: No problems Musculoskeletal: No problems Neurological: No problems Skin: No problems Vital Signs - Temperature Temperature: 97.9 F Temperature Source: Axillary - Pulse Right Brachial Pulse Rate: 103 Pulse Assessment Method: Automatic Cuff - Respirations Respiratory Rate: 17 Oxygen Delivery Method: Room Air - Blood Pressure Right Arm Blood Pressure: 170/83 Blood Pressure Mean: 112 Blood Pressure Source: Automatic Cuff Physician Notification - Physician Notified Physician Notified Date: 10/02/21 Physician Notified Time: 12:15 Physician: Kimberlyn Maria Order Received: Yes - Notification Comment Comment: Dr. Maria notified of reactive NST, results of BPP, orders to discharge pt home and follow up with MFM and Dr. Maria at next scheduled appointment, I 10 code Maternal Triage Index - Maternal Triage Index Presenting for scheduled procedure w/no complaint: Yes - Scheduled/Requesting Priority 5 Scheduled/Requesting Priority 5: Yes Criteria Met for Priority 5: pt presented to triage for twice a week nst, and weekly BPP per written orders by Dr. Maria, GA 34 04/28 Disposition - Disposition OB Disposition: Triage, Discharge to home, Written follow up instructions reviewed Discharge Date: 10/02/21 Discharge Time: 12:20 I agree with the RN Medical Screening Exam: Yes Case reviewed; plan agreed upon as documented in EMR&OBIX.: Yes Diagnosis: ESSENTIAL (PRIMARY) HYPERTENSION
== END 2021-10-02 12:20 | disposition home or self-care (01) ==
LOC: FBPOP 10:23
PROVIDERS: ATTEND Obstetrics & Gynecology
DX: O16.3 Unspecified maternal hypertension, third trimester (principal); Z3A.34 34 weeks gestation of pregnancy
CPT/HCPCS: 59025; 76819

== ENCOUNTER 2021-10-06 19:07 | Outpatient (CLI) | payer OTHER ==
[2021-10-06 20:25] VITALS: BP 138/82; PULSE 104; RESP 16; TEMP 98.3
--- NOTE | 2021-10-07 09:01 | P.MSEPDOC ---
Presenting Problems - Arrival Data Date of Arrival on Unit: 10/06/21 Time of Arrival on Unit: 19:07 Mode of Transport: Ambulatory - Complaint OB-Reason for Admission/Chief Complaint: NST Comment: Pt presents for an NST. Pt gets biweekly NSTs and weekly BPP. Medical History - Information : 3 Para: 1 Term: 1 Abortions: Spontaneous or Elective: 1 Number of Living Children: 1 - Gestational Age Gestational Age by ANITHA (wks/days): 34 Weeks and 6 Days - History Complications: Chronic HTN Review of Systems - Review of Systems Constitutional: No problems Breast: No problems ENT: No problems Cardiovascular: No problems Respiratory: No problems Gastrointestinal: No problems Genitourinary: No problems Musculoskeletal: No problems Neurological: No problems Skin: No problems Vital Signs - Temperature Temperature: 98.3 F Temperature Source: Oral - Pulse Right Sitting Pulse Rate: 104 Pulse Assessment Method: Automatic Cuff - Respirations Respiratory Rate: 16 Oxygen Delivery Method: Room Air O2 Sat by Pulse Oximetry: 98 - Blood Pressure Right Arm Sitting Blood Pressure: 138/82 Blood Pressure Mean: 100 Blood Pressure Source: Automatic Cuff Medical Screen Scoring - Assessment - Baby A Baseline FHR: 145 Heart Rate - NICHD Category: Category I (Normal) NST: Reactive Physician Notification - Physician Notified Physician Notified Date: 10/06/21 Physician Notified Time: 20:07 Physician: Kimberlyn Maria Order Received: Yes (D/C home) - Notification Comment Comment: I10, pt came in with standing order for NST Maternal Triage Index - Maternal Triage Index Presenting for scheduled procedure w/no complaint: Yes - Scheduled/Requesting Priority 5 Scheduled/Requesting Priority 5: Yes Criteria Met for Priority 5: standing order for biweekly NST Disposition - Disposition OB Disposition: Discharge to home, Written follow up instructions reviewed Discharge Date: 10/06/21 Discharge Time: 20:10 I agree with the RN Medical Screening Exam: Yes Case reviewed; plan agreed upon as documented in EMR&OBIX.: Yes Diagnosis: SUPERVISION OF HIGH RISK , UNSP, THIRD TRIMESTER
== END 2021-10-06 20:10 | disposition home or self-care (01) ==
LOC: FBPOP 19:07
PROVIDERS: ATTEND Obstetrics & Gynecology
DX: O09.33 Supervision of pregnancy with insufficient antenatal care, third trimester (principal); Z3A.34 34 weeks gestation of pregnancy
CPT/HCPCS: 59025

== ENCOUNTER → 2021-10-09 | Outpatient (CLI) | payer OTHER ==
[2021-10-09 23:44] VITALS: BP 140/88; PULSE 100; RESP 18; TEMP 97.7
--- NOTE | 2021-10-17 08:48 | P.MSEPDOC ---
Presenting Problems - Arrival Data Date of Arrival on Unit: 10/09/21 Time of Arrival on Unit: 20:40 Mode of Transport: Ambulatory - Complaint OB-Reason for Admission/Chief Complaint: Decreased Movement Medical History - Information : 3 Para: 1 Term: 1 : 0 Abortions: Spontaneous or Elective: 1 Number of Living Children: 1 - Gestational Age Gestational Age by ANITHA (wks/days): 35 Weeks and 2 Days Review of Systems - Review of Systems Constitutional: No problems Breast: No problems ENT: No problems Cardiovascular: No problems Respiratory: No problems Gastrointestinal: No problems Genitourinary: No problems Musculoskeletal: No problems Neurological: No problems Skin: No problems Vital Signs - Temperature Temperature: 97.7 F Temperature Source: Temporal Artery Scan - Pulse Left Pulse Oximetery Pulse Rate: 100 Pulse Assessment Method: Pulse Oximetry - Respirations Respiratory Rate: 18 Oxygen Delivery Method: Room Air O2 Sat by Pulse Oximetry: 98 - Blood Pressure Right Radial Artery Blood Pressure: 140/88 Blood Pressure Mean: 105 Blood Pressure Source: Automatic Cuff Medical Screen Scoring - Cervical Exam Membranes: Intact - Assessment - Baby A Baseline FHR: 145 Heart Rate - NICHD Category: Category I (Normal) NST: Reactive Physician Notification - Physician Notified Physician Notified Date: 10/09/21 Physician Notified Time: 21:50 Physician: Sasha Mckee - Notification Comment Comment: Dr. Mckee given report at this time including FHTs. Pt okay to D/C home. Maternal Triage Index - Maternal Triage Index Presenting for scheduled procedure w/no complaint: No - Stat/Priority 1 Stat Priority 1: No - Urgent/Priority 2 Urgent Priority 2: Yes Provider Notified: Sasha Mckee Provider Notified Time: 21:50 Criteria Met for Priority 2: Pt is a with ANITHA 11/11/21 here at 35.2 weeks of gestation with c/o. decreased FM. Pt states she has only felt baby move x1 since earlier today, pt also reports attempting to use her home doppler without success. Disposition - Disposition OB Disposition: Discharge to home Discharge Date: 10/09/21 Discharge Time: 22:05 I agree with the RN Medical Screening Exam: Yes Case reviewed; plan agreed upon as documented in EMR&OBIX.: Yes Diagnosis: DECREASED MOVEMENTS, THIRD TRIMESTER, UNSP
== END | disposition home or self-care (01) ==
LOC: FBPOP 20:40
PROVIDERS: ATTEND Obstetrics & Gynecology
DX: O36.8130 Decreased fetal movements, third trimester, not applicable or unspecified (principal); Z3A.35 35 weeks gestation of pregnancy
CPT/HCPCS: 59025; G0463; 99213

== ENCOUNTER → 2021-10-13 | Outpatient (CLI) | payer OTHER | END | disposition home or self-care (01) | LOC: FBPOP 11:10 | PROVIDERS: ATTEND Obstetrics & Gynecology | DX: Z53.9 Procedure and treatment not carried out, unspecified reason (principal) ==

== ENCOUNTER → 2021-10-16 | Outpatient (CLI) | payer OTHER ==
[2021-10-16 21:16] LABS: Anisocytosis Slight; Basophils % (A) 0 %; Eosinophils # (A) 0.1 k/uL (0-0.7); Eosinophils % (A) 1 %; HCT 30.3 % (34.0-46.0); HGB 9.4 gm/dL (11.4-16.0); Hypochromasia Marked; Lymphocytes # (A) 2.3 k/uL (1.0-4.8); Lymphocytes % (A) 21 %; MCH 24.4 pg (25.0-35.0); MCHC 31.2 g/dL (31.0-37.0); MCV 78.3 fL (80.0-100.0); Mean Platelet Volume 8.7; Microcytosis Slight; Monocytes # (A) 0.4 k/uL (0-1.0); Monocytes % (A) 3 %; Neutrophils # (A) 8.3 k/uL (1.3-7.7); Neutrophils % (A) 74 %; Platelet Count 369 k/uL (150-450); Poikilocytosis Slight; RBC 3.86 m/uL (3.80-5.40); RDW 16.1 % (11.5-15.5); WBC 11.2 k/uL (3.8-10.6)
[2021-10-16 21:30] LABS: Uric Acid 3.8 mg/dL (3.7-7.4)
--- NOTE | 2021-10-16 21:57 | P.MSEPDOC ---
Presenting Problems - Arrival Data Date of Arrival on Unit: 10/16/21 Time of Arrival on Unit: 20:00 Mode of Transport: Portable I agree with the RN Medical Screening Exam: Yes Case reviewed; plan agreed upon as documented in EMR&OBIX.: Yes Diagnosis: GESTATIONAL HTN W/O SIGNIFICANT PROTEINURIA, THIRD TRIMESTER (Patient presents to labor and delivery for antepartum surveillance including a nonstress test and biophysical profile. Patient states that she was supposed to do this tomorrow however she is going to to [facility] for the day and elected to come to labor and delivery this evening. Initial blood pressure was elevated as it is in the office however serial blood pressure showed comes down to normal. Patient's been followed by Dr. Suarez for gestational hypertension and is on antihy pertensives. Patient did have blood work done last Wednesday at maternal medicine apparently that was normal. I did repeat her preeclampsia labs and again there are normal. Nonstress test is reactive. Physical is 8 out of 8. Patient is felt to be stable for discharge home follow per Dr. Maria's instructions. I did discuss all these findings with the patient and she is agreeable to this plan.)
--- NOTE | 2021-10-16 22:48 | US ---
EXAMINATION TYPE: US OB BPP wo non-stress DATE OF EXAM: 10/16/2021 COMPARISON: US 2021 CLINICAL HISTORY: weekly bpp for chronic hypertension. TECHNIQUE: Transabdominal (TA). Scoring by the wood cutter during real-time assessment. FINDINGS: BPP PARAMETERS: PRESENTATION: Breech HEART RATE: 142 bpm RHYTHM: Normal PATTIE: 14.8cm DIAPHRAGM IMAGED: yes BPP SCORIN. Breathin (1 episode of breathing of 30 second duration in 30 minutes of scanning time) 2. Movement: 2 (at least 3 discrete body movements in 30 minutes) 3. Tone: 2 (1 episode of active flexion/extension of limb) 4. PATTIE: 2 (PATTIE index > 5cm) Difficult and limited study due to morbidly obese patient IMPRESSION: TOTAL SCORE: 8 / 8 Normal biophysical profile.
[2021-10-16 23:54] VITALS: BP 160/83; PULSE 109; RESP 16; TEMP 98.1
== END | disposition home or self-care (01) ==
LOC: FBPOP 19:57
PROVIDERS: ATTEND Obstetrics & Gynecology
DX: O13.3 Gestational [pregnancy-induced] hypertension without significant proteinuria, third trimester (principal); Z3A.00 Weeks of gestation of pregnancy not specified
CPT/HCPCS: 59025; 76819; 84450; 84460; 84550; 85025

== ENCOUNTER 2021-10-17 18:40 | Outpatient (CLI) | payer OTHER ==
[2021-10-17 19:42] LABS: Amorphous Sediment,Urine Rare /hpf; Appearance,Urine Turbid (Clear); Bacteria,Urine Occasional /hpf; Bilirubin,Urine Negative (Negative); Blood,Urine Negative (Negative); Color,Urine Yellow; Glucose,Urine (UA) Negative (Negative); Ketones,Urine Negative (Negative); Leukocyte Esterase,Urine Negative (Negative); Nitrite,Urine Negative (Negative); PH, Urine 7.5 (5.0-8.0); Protein,Urine Negative (Negative); RBC,Urine 1 /hpf (0-5); Specific Gravity,Urine 1.017 (1.001-1.035); Squamous Epithelial Cell,Urine 1 /hpf (0-4); Urobilinogen,Urine <2.0 mg/dL (<2.0); WBC,Urine 2 /hpf (0-5)
[2021-10-17 21:16] VITALS: BP 140/88; PULSE 105; RESP 18; TEMP 96.5
--- NOTE | 2021-10-19 10:43 | P.MSEPDOC ---
Presenting Problems - Arrival Data Date of Arrival on Unit: 10/17/21 Time of Arrival on Unit: 18:40 Mode of Transport: Ambulatory - Complaint OB-Reason for Admission/Chief Complaint: Possible Onset of Labor Medical History - Information : 2 Para: 1 Term: 1 : 0 Abortions: Spontaneous or Elective: 0 Number of Living Children: 1 - Gestational Age Gestational Age by ANITHA (wks/days): 36 Weeks and 3 Days - History Complications: Chronic HTN, Breech Review of Systems - Review of Systems Constitutional: No problems Breast: No problems ENT: No problems Cardiovascular: No problems Respiratory: No problems Gastrointestinal: No problems Genitourinary: No problems Musculoskeletal: No problems Neurological: No problems Skin: No problems Vital Signs - Temperature Temperature: 96.5 F Temperature Source: Temporal Artery Scan - Pulse Right Pulse Rate: 105 Pulse Assessment Method: Pulse Oximetry - Respirations Respiratory Rate: 18 Oxygen Delivery Method: Room Air O2 Sat by Pulse Oximetry: 97 - Blood Pressure Right Arm Blood Pressure: 140/88 Blood Pressure Mean: 105 Blood Pressure Source: Automatic Cuff Medical Screen Scoring - Cervical Exam Dilation (cm): 1 Station: -3 Membranes: Intact - Uterine Contractions Resting: Soft to palpation - Assessment - Baby A Baseline FHR: 135 Heart Rate - NICHD Category: Category I (Normal) NST: Reactive Physician Notification - Physician Notified Physician Notified Date: 10/17/21 Physician Notified Time: 19:06 Physician: Kimberlyn Maria Order Received: Yes - Notification Comment Comment: RN reported to Dr. Maria that pt is 1/thick/high, no blood noted on glove or. externally. Cervix is posterior. RN to recheck cervix in an hour, if unchanged and pt. has a reactive NST, pt may DC home. RN reported to Dr. Maria that pt's cervix is unchanged, no blood noted on glove. Reactive NST, category 1 FHTs. Pt is still feeling some cramping, however no cxns are. traced and abdomen is soft. UA was WNL. RN is to discharge pt home with instructions to drink plenty. of water, rest, take warm bath. Pt is scheduled to come in for her P C/S on 10/22. Pt to. return with any worsenning symptoms. Discharge instructions given to pt and her . Maternal Triage Index - Maternal Triage Index Presenting for scheduled procedure w/no complaint: No - Stat/Priority 1 Stat Priority 1: No - Urgent/Priority 2 Urgent Priority 2: Yes Provider Notified: Kimberlyn Maria Provider Notified Time: 19:06 Criteria Met for Priority 2: >34wks, breech, planned c/s Disposition - Disposition OB Disposition: Discharge to home Discharge Date: 10/17/21 Discharge Time: 20:30 I agree with the RN Medical Screening Exam: Yes Case reviewed; plan agreed upon as documented in EMR&OBIX.: Yes Diagnosis: FALSE LABOR BEFORE 37 COMPLETED WEEKS OF GEST, THIRD TRI
== END 2021-10-17 20:30 | disposition home or self-care (01) ==
LOC: FBPOP 18:40
PROVIDERS: ATTEND Obstetrics & Gynecology
DX: O47.03 False labor before 37 completed weeks of gestation, third trimester (principal); Z3A.36 36 weeks gestation of pregnancy
CPT/HCPCS: 59025; 81001; G0463; 99213

== ENCOUNTER 2021-10-20 15:40 | Outpatient (CLI) | payer OTHER | END 2021-10-20 16:30 | disposition home or self-care (01) | LOC: FBPOP 15:40 | PROVIDERS: ATTEND Obstetrics & Gynecology | DX: O13.9 Gestational [pregnancy-induced] hypertension without significant proteinuria, unspecified trimester (principal); Z3A.00 Weeks of gestation of pregnancy not specified | CPT/HCPCS: 59025 ==

== ENCOUNTER 2021-10-22 05:47 | Inpatient (IN) | payer OTHER ==
--- NOTE | 2021-10-21 20:12 | P.HPOB ---
History of Present Illness H&P Date: 10/21/21 Chief Complaint: Scheduled repeat section with tubal ligation This is a 31 y.o. female, 3, para 1, with an estimated date of confinement of 11/11/2021, estimated gestational age of 37-1/7 weeks, who presents for scheduled repeat section with tubal ligation for family planning. [employer] has recommended delivery at 37 weeks due to gestational hypertension and pre-eclampsia based on P/C ratio of 0.37 at 32 weeks. Recently she has had some elevated blood pressures into severe range, but after monitoring, they have come down and labs are normal. She denies any blurred vision, but does have occasional headaches. She complains of back and leg pain, pressure and irregular cramping. Baby has been breech on latest ultrasounds. labs: Quad-neg Hemoglobin-10.8 Hepatitis B surface antigen-neg RPR-NR Rubella-immune Blood type-B+ Antibody screen-neg HIV-NR Random glucose-87 Unable to do 1 hr. GTT, but sugars were normal when testing for a week GBS-neg OB Hx: . 1 vaginal delivery at term. 1 ectopic, s/p L. salpingectomy. Automotive Specialty Technician Hx: No hx STDs Social Hx: . Unemployed. Review of Systems Constitutional: Denies chills, Denies fever Eyes: denies blurred vision, denies pain Ears, nose, mouth and throat: Reports headache (occasional), Denies sore throat Cardiovascular: Reports shortness of breath, Denies chest pain Respiratory: Denies cough Gastrointestinal: Reports abdominal pain (irregular contractions) Genitourinary: Reports pelvic pain, Reports Musculoskeletal: Reports low back pain Integumentary: Denies pruritus, Denies rash Neurological: Denies numbness, Denies weakness Psychiatric: Denies anxiety, Denies depression Past Medical History Past Medical History: Hypertension Additional Past Medical History / Comment(s): Hernia, ectopic , History of Any Multi-Drug Resistant Organisms: None Reported Past Surgical History: Adenoidectomy, Bariatric Surgery, Cholecystectomy, Orthopedic Surgery, Tonsillectomy Additional Past Surgical History / Comment(s): Laparoscopic L. salpingectomy due to ectopic Past Anesthesia/Blood Transfusion Reactions: No Reported Reaction Past Psychological History: No Psychological Hx Reported Smoking Status: Never smoker Past Alcohol Use History: None Reported Past Drug Use History: None Reported - Past Family History Mother Family Medical History: No Reported History Father Family Medical History: No Reported History Medications and Allergies Home Medications Medication Instructions Recorded Confirmed Type Labetalol [Trandate] 200 mg PO TID 08/07/21 10/22/21 History RX: Aspirin 81 mg PO DAILY 08/07/21 10/22/21 History Vit No.179/Iron/Folic 1 tab PO DAILY 09/19/21 10/22/21 History [ Tablet] Famotidine [Pepcid] 20 mg PO BID 09/25/21 10/22/21 History Allergies Allergy/AdvReac Type Severity Reaction Status Date / Time amoxicillin Allergy Anaphylaxis Verified 10/22/21 06:01 codeine Allergy Unknown Verified 10/22/21 06:01 hydromorphone [From Dilaudid] Allergy Chest Pain Verified 10/22/21 06:01 nitrofurantoin Allergy Anaphylaxis Verified 10/22/21 06:01 [From Macrobid] morphine AdvReac Unknown Verified 10/22/21 06:01 Exam Osteopathic Statement: *. No significant issues noted on an osteopathic structural exam other than those noted in the History and Physical/Consult. Gen: Obese female HEENT: within normal limits Heart: regular rate and rhythm Lungs: clear to auscultation bilaterally Abdomen: , non-tender Cervix: closed/uneffaced/out of pelvis Extremities: negative Ariel's Results Result Diagrams: 10/22/21 06:10 10/22/21 06:10 Assessment and Plan (1) 37 weeks gestation of Current Visit: No Status: Acute Code(s): Z3A.37 - 37 WEEKS GESTATION OF SNOMED Code(s): 38219129 (2) Preeclampsia Current Visit: No Status: Acute Code(s): O14.90 - UNSPECIFIED PRE-ECLAMPSIA, UNSPECIFIED TRIMESTER SNOMED Code(s): 507079946 (3) Gestational hypertension Current Visit: No Status: Acute Code(s): O13.9 - GESTATIONAL HTN W/O SIGNIFICANT PROTEINURIA, UNSP TRIMESTER SNOMED Code(s): 17427652 Plan: Proceed with repeat section with right partial salpingectomy. I have discussed the risks, benefits, and alternative therapies for the above- mentioned procedure and for both sedation/anesthesia as well as necessary blood products administration, if indicated, as they pertain to this patient. The patient has indicated her understanding and acceptance of the risks and procedures discussed.
[2021-10-22] MEDS ORDERED: NALOXONE 0.4 MG/ML 1 ML VIAL IV PRN (06:04)
[2021-10-22] MEDS ORDERED: CITRIC ACID-SODIUM CITRATE 15 ML CUP PO ONE (06:04)
[2021-10-22] MEDS ORDERED: LIDOCAINE 1% (10MG/ML) FOR IV START INTRADERMA PRN (06:04)
[2021-10-22] MEDS ORDERED: LACTATED RINGERS 1,000 ML IV ONE (06:04)
[2021-10-22] MEDS ORDERED: ceFAZolin 3 GM in SODIUM CHLORIDE 0.9% 100 ML IVPB ONE (06:15)
[2021-10-22 06:27] LABS: Anisocytosis Slight; Basophils % (A) 0 %; Eosinophils # (A) 0.1 k/uL (0-0.7); Eosinophils % (A) 1 %; HCT 30.7 % (34.0-46.0); HGB 9.7 gm/dL (11.4-16.0); Hypochromasia Moderate; Lymphocytes # (A) 2.8 k/uL (1.0-4.8); Lymphocytes % (A) 22 %; MCH 24.2 pg (25.0-35.0); MCHC 31.7 g/dL (31.0-37.0); MCV 76.3 fL (80.0-100.0); Mean Platelet Volume 7.1; Microcytosis Slight; Monocytes # (A) 0.6 k/uL (0-1.0); Monocytes % (A) 5 %; Neutrophils # (A) 8.9 k/uL (1.3-7.7); Neutrophils % (A) 71 %; Platelet Count 403 k/uL (150-450); RBC 4.02 m/uL (3.80-5.40); RDW 16.1 % (11.5-15.5); WBC 12.7 k/uL (3.8-10.6)
[2021-10-22] MEDS: LACTATED RINGERS 1,000 ML IV SCH ×3 (06:27→23:43)
[2021-10-22 06:33] LABS: INR 0.9 (<1.2); Partial Thromboplastin Time 22.4 sec (22.0-30.0); Prothrombin Time 9.7 sec (9.0-12.0)
[2021-10-22 06:48] LABS: Appearance,Urine Cloudy (Clear); Bacteria,Urine Moderate /hpf; Bilirubin,Urine Negative (Negative); Blood,Urine Negative (Negative); Color,Urine Yellow; Glucose,Urine (UA) Negative (Negative); Ketones,Urine Negative (Negative); Leukocyte Esterase,Urine Small (Negative); Mucus,Urine Rare /hpf; Nitrite,Urine Negative (Negative); PH, Urine 6.5 (5.0-8.0); Protein,Urine Trace (Negative); RBC,Urine 3 /hpf (0-5); Specific Gravity,Urine 1.012 (1.001-1.035); Squamous Epithelial Cell,Urine 8 /hpf (0-4); Urobilinogen,Urine <2.0 mg/dL (<2.0); WBC,Urine 7 /hpf (0-5)
[2021-10-22 06:49] LABS: ALT 11 U/L (4-34); AST 17 U/L (14-36); African American GFR (CKD) >90 (>60 ml/min/1.73 sqM); Blood Urea Nitrogen 5 mg/dL (7-17); LDH 414 U/L (313-618); Non-African American GFR(CKD) >90 (>60 ml/min/1.73 sqM); Uric Acid 4.6 mg/dL (3.7-7.4)
--- NOTE | 2021-10-22 08:49 | P.OP ---
Date of Procedure: 10/22/21 Preoperative Diagnosis: 1. Intrauterine at 37 and one sevenths weeks. 2. Breech presentation. 3. Gestational hypertension with preeclampsia. 4. Family-planning. Postoperative Diagnosis: Same Procedure(s) Performed: Primary low transverse section with right partial salpingectomy Anesthesia: spinal (Duramorph) Surgeon: Kimberlyn Maria Cabinetmaker Supervisor #1: Robson Cedeño Estimated Blood Loss (ml): 500 Pathology: other (Placenta, portion of right fallopian tube) Condition: stable Disposition: floor Indications for Procedure: This is a 31-year-old female 3 para 1 at 37 and one sevenths weeks with baby in breech presentation and complicated by gestational hypertension with superimposed preeclampsia. Please see history and physical for details of admission. She has consented to primary section with right partial salpingectomy. She has a previous left salpingectomy due to ectopic . I have discussed the risks, benefits, and alternative therapies for the above- mentioned procedure and for both sedation/anesthesia as well as necessary blood products administration, if indicated, as they pertain to this patient. The patient has indicated her understanding and acceptance of the risks and procedu res discussed. Operative Findings: A viable male is noted in the footling breech presentation with scores of 8 at 1 minute and 9 at 5 minutes and infant weight of 7 lbs. 5 oz. Normal right fallopian tube is noted. Left fallopian tube is previously removed. Both ovaries appear normal. Description of Procedure: The patient is taken to the operating room where she is placed in the dorsal supine position with leftward tilt after spinal Duramorph anesthesia is given. She is prepped and draped in the normal sterile fashion. Abdominal retractor is placed on the patient's upper abdomen and attached to the bed by anesthesia for retraction of her panniculus. Skin was tested and found to be adequately anesthetized. A Pfannenstiel skin incision was made with a scalpel. A second knife was used to carry the incision down to the underlying layer of fascia. The fascia was nicked in the midline with a scalpel and then extended laterally bilaterally with Wright scissors. The anterior lip of the fascia was grasped with 2 Wade clamps and then dissected off the underlying rectus muscle in the midline with Wright scissors. The inferior aspect of the fascial incision was grasped with 2 Wade clamps and dissected off the underlying rectus muscle and the midline with Wright scissors. Next the peritoneum layer was tented up with 2 hemostats and then entered sharply with the scalpel. The incision is extended superiorly and inferiorly with Metzenbaum scissors. Next a DeLee retractor is placed. The vesicouterine peritoneum is entered sharply with Metzenbaum scissors and extended laterally bilaterally with Metzenbaum scissors and then the bladder flap is pushed inferiorly. The lower uterine segment is incised in transverse fashion with the scalpel and then bluntly entered with a hemostat. Clear fluid is noted. The incision was then extended laterally bilaterally with 2 fingers. Next the 's feet are delivered through the incision followed by the buttocks and trunk, followed by each arm in a flexed position, followed by the head in a flexed position. Nose and mouth are bulb suctioned. Cord is clamped and cut. is taken to warmer by nursing staff. Uterine fundus is gently massaged and placenta is delivered manually. Uterus is exteriorized and cleared of all clots and debris. Uterine incision is closed with 0 Vicryl suture in a running locked fashion. A second layer of 0 Vicryl suture is used in a running fashion for hemostasis. Once adequate hemostasis as assured, the vesicouterine peritoneum is reapproximated with 2-0 Vicryl suture in a running fashion. The right fallopian tube is grasped in the midportion and then the mesosalpinx is entered with Bovie cautery. 0 Vicryl suture is tied 2 times around both the proximal and distal portion of the tube and the knuckle of tube is cut with Metzenbaum scissors. The portion of tube is removed from the field and then the ends of the tubes are cauterized with Bovie cautery. Good hemostasis is noted. Posterior cul-de-sac is suctioned of all clots and debris. Uterus is returned to the abdomen. Incision is noted to be hemostatic. Right fallopian tube segment is also noted to be hemostatic. Peritoneal layer is closed with 0 Vicryl suture in a running fashion. Muscle layer is reapproximated with 0 Vicryl suture in interrupted fashion. Fascia layer is then closed with 0 PDS suture with 2 sutures meeting in the midline and the knots buried in either side and in the midline. The subcutaneous tissue was then closed with 2-0 Vicryl suture. Skin layer was then closed with kapil. All sponge and needle counts are correct. The patient is taken to recovery room in stable condition.
[2021-10-22] MEDS ORDERED: METOCLOPRAMIDE 5 MG/ML 2 ML VIAL IVP PRN (08:55)
[2021-10-22] MEDS ORDERED: diphenhydrAMINE 50 MG/ML 1 ML VIAL IVP PRN ×2 (08:55)
[2021-10-22] MEDS ORDERED: ONDANSETRON 4 MG/2 ML VIAL IVP PRN (08:55)
[2021-10-22] MEDS ORDERED: SIMETHICONE 80 MG CHEWABLE PO PRN (08:55)
[2021-10-22] MEDS ORDERED: ZOLPIDEM 5 MG TAB PO PRN (08:55)
[2021-10-22] MEDS ORDERED: LANOLIN CREAM 5 GM TUBE TOPICAL PRN (08:55)
[2021-10-22] MEDS ORDERED: diphenhydrAMINE 50 MG CAP PO PRN (08:55)
[2021-10-22] MEDS ORDERED: diphenhydrAMINE 25 MG CAP PO PRN (08:55)
[2021-10-22] MEDS ORDERED: OXYTOCIN 30 UNITS/500 ML NS 30 UNIT in SALINE 1 500ML.BAG IV SCH (09:00)
[2021-10-22] MEDS: LABETALOL 200 MG TAB PO SCH ×4 (09:11→19:41)
[2021-10-22] MEDS: FAMOTIDINE 20 MG TAB PO SCH ×3 (09:11→19:45)
[2021-10-22 09:13] LABS: Creatinine,Urine Random 129.5 mg/dL; Protein/Creatinine Ratio,Urine 0.17
[2021-10-22] MEDS: ACETAMINOPHEN IV (For NPO) 1,000 MG in EMPTY BAG 1 BAG IVPB SCH ×2 (12:59→19:19)
[2021-10-22] MEDS: ACETAMINOPHEN TAB 500 MG TAB PO SCH ×2 (15:26→18:51)
[2021-10-22] MEDS: KETOROLAC 15 MG/ML 1 ML VIAL IVP SCH ×2 (16:22→23:41)
[2021-10-22] MEDS: IBUPROFEN 600 MG TAB PO SCH ×2 (16:58→19:40)
[2021-10-22] MEDS: SENNOSIDES-DOCUSATE SODIUM 1 EACH TAB PO SCH (19:45)
[2021-10-23] MEDS: IBUPROFEN 600 MG TAB PO SCH ×4 (05:04→22:37)
[2021-10-23] MEDS: ACETAMINOPHEN TAB 500 MG TAB PO SCH ×4 (05:04→17:51)
[2021-10-23 06:52] LABS: Anisocytosis Slight; Basophils % (A) 0 %; Eosinophils # (A) 0.1 k/uL (0-0.7); Eosinophils % (A) 1 %; HCT 26.8 % (34.0-46.0); HGB 8.4 gm/dL (11.4-16.0); Hypochromasia Moderate; Lymphocytes % (A) 18 %; MCH 24.3 pg (25.0-35.0); MCHC 31.2 g/dL (31.0-37.0); MCV 77.8 fL (80.0-100.0); Mean Platelet Volume 6.9; Microcytosis Slight; Monocytes # (A) 0.6 k/uL (0-1.0); Monocytes % (A) 5 %; Neutrophils # (A) 8.2 k/uL (1.3-7.7); Neutrophils % (A) 75 %; Platelet Count 300 k/uL (150-450); RBC 3.44 m/uL (3.80-5.40); RDW 16.4 % (11.5-15.5)
[2021-10-23] MEDS: LACTATED RINGERS 1,000 ML IV SCH ×2 (06:53→15:35)
[2021-10-23] MEDS: KETOROLAC 15 MG/ML 1 ML VIAL IVP SCH ×2 (06:53→15:27)
[2021-10-23] MEDS: FAMOTIDINE 20 MG TAB PO SCH ×2 (07:35→17:52)
--- NOTE | 2021-10-23 08:30 | P.PN ---
Progress Note - Text Date: 10/23/2021 Time: 07:21 The patient is status post section Vital signs stable VAS: 0-10 Patient has no complaints of pain. The patient incurred some minimal itching yesterday, this itching is now subsiding. Pain meds to be managed by service.
--- NOTE | 2021-10-23 08:58 | P.PNOBGPC ---
Subjective - Subjective Principal diagnosis: Status post section with tubal postoperative day #1 Interval history: Patient is doing well. She is passing flatus but no bowel movement yet. Pain is well-controlled. Lochia is minimal. She is working on breast-feeding. Patient reports: Reports appetite normal, Reports voiding normally, Reports pain well controlled, Reports ambulating normally [place]: doing well Objective - Vital Signs Latest vital signs: Vital Signs Temp Pulse Resp BP Pulse Ox 10/23/21 07:43 97.6 F 82 17 122/70 99 10/23/21 07:00 16 10/23/21 04:00 97.9 F 84 16 117/59 99 10/23/21 00:00 97.8 F 73 18 129/67 96 10/22/21 20:00 98.5 F 86 18 118/75 97 10/22/21 17:00 17 10/22/21 16:00 98.6 F 81 17 112/71 98 10/22/21 15:00 17 10/22/21 13:00 16 10/22/21 11:27 97.0 F L 75 16 107/52 10/22/21 11:04 96 10/22/21 11:00 17 10/22/21 10:52 97.0 F L 67 17 110/65 95 10/22/21 10:22 80 16 106/57 93 L 10/22/21 09:52 96.9 F L 73 16 110/61 98 10/22/21 09:37 84 16 92 L 10/22/21 09:22 80 16 118/62 97 10/22/21 09:07 93 18 117/60 10/22/21 09:02 17 Intake and Output 10/22/21 10/23/21 10/23/21 22:59 06:59 14:59 Output Total 225 200 Balance -225 -200 Output: Urine 225 200 Other: Voiding Method Indwelling Catheter # Voids 1 1 - Exam Extremities: Present: normal. Absent: tenderness Abdomen: Present: normal appearance, soft (Positive bowel sounds 4). Absent: distention, tenderness Incision: Present: normal, dry, intact. Absent: erythematous Uterus: Present: normal, firm. Absent: tenderness - Labs Labs: Abnormal Lab Results - Last 24 Hours (Table) 10/23/21 Range/Units 06:29 WBC 11.0 H (3.8-10.6) k/uL RBC 3.44 L (3.80-5.40) m/uL Hgb 8.4 L (11.4-16.0) gm/dL Hct 26.8 L (34.0-46.0) % MCV 77.8 L (80.0-100.0) fL MCH 24.3 L (25.0-35.0) pg RDW 16.4 H (11.5-15.5) % Neutrophils # 8.2 H (1.3-7.7) k/uL Assessment and Plan Assessment: Status post primary low transverse section with right partial salpingectomy postoperative day #1 (1) 37 weeks gestation of Current Visit: No Status: Acute Code(s): Z3A.37 - 37 WEEKS GESTATION OF SNOMED Code(s): 08168162 (2) Preeclampsia Current Visit: No Status: Acute Code(s): O14.90 - UNSPECIFIED PRE-ECLAMPSIA, UNSPECIFIED TRIMESTER SNOMED Code(s): 314131927 (3) Gestational hypertension Current Visit: No Status: Acute Code(s): O13.9 - GESTATIONAL HTN W/O SIGNIFICANT PROTEINURIA, UNSP TRIMESTER SNOMED Code(s): 99442015 Plan: Continue with postoperative and care today. Blood pressure medications have been held since her blood pressure has been lower. She is advised this may increase a little bit today once her spinal medication has worn off. Diet as tolerated.
[2021-10-23] MEDS: SENNOSIDES-DOCUSATE SODIUM 1 EACH TAB PO SCH ×2 (10:52→19:53)
[2021-10-23] MEDS: LABETALOL 200 MG TAB PO SCH ×3 (10:54→19:52)
[2021-10-24] MEDS: ACETAMINOPHEN TAB 500 MG TAB PO SCH ×2 (00:09→06:43)
[2021-10-24] MEDS: IBUPROFEN 600 MG TAB PO SCH (04:23)
[2021-10-24] MEDS: SENNOSIDES-DOCUSATE SODIUM 1 EACH TAB PO SCH (07:49)
[2021-10-24] MEDS: FAMOTIDINE 20 MG TAB PO SCH (07:49)
[2021-10-24 07:52] VITALS: BP 143/79; PULSE 74; RESP 18; TEMP 97.8
[2021-10-24] MEDS: LABETALOL 200 MG TAB PO SCH (08:03)
--- NOTE | 2021-10-24 10:02 | P.DS ---
Providers Date of admission: 10/22/21 05:47 Expected date of discharge: 10/24/21 Attending physician: Kimberlyn Maria Primary care physician: Stated None - Discharge Diagnosis(es) (1) 37 weeks gestation of Current Visit: No Status: Acute (2) Preeclampsia Current Visit: No Status: Acute (3) Gestational hypertension Current Visit: No Status: Acute Hospital Course: This is a 31-year-old female 3 para 1 at 37 and one sevenths weeks who presented for scheduled section due to gestational hypertension and preeclampsia. She underwent a primary low transverse section with right partial salpingectomy on 2021 and delivered a viable male infant with scores of 8 at 1 minute and 9 at 5 minutes and weight of 7 lbs. 5 oz. Her course had been uncomplicated. Her blood pressures initially were low but then did increase to the point she needed to resume her labetalol. There are no blood pressures and severe category at this time. She denies any headaches or blurry vision. She is passing flatus and bowel movement. She is urinating without difficulty. She is breast-feeding. Vital signs are stable. Abdomen is soft with positive bowel sounds 4. Incision is clean dry and intact with kapil in place. Extremities show negative [place]. Impression is status post primary low transverse section with right partial salpingectomy postoperative day #2. Plan is to discharge home later today. Routine postoperative and instructions are given. She will continue to check her blood pressures at home. She is continuing on her labetalol. She is advised to follow up in the office in 1-2 weeks for a postoperative check and in 6 weeks for a check. She is advised to call the office if she has any further questions or concerns prior to her appointment time. [place] will be removed and Steri-Strips placed prior to discharge. Procedures: Primary low transverse section with right partial salpingectomy on 10/22/2021 Patient Condition at Discharge: Stable Plan - Discharge Summary New Discharge Prescriptions: New Ibuprofen [Motrin] 600 mg PO Q6H #60 tab Continue Labetalol [Trandate] 200 mg PO TID Famotidine [Pepcid] 20 mg PO BID Vit No.179/Iron/Folic [ Tablet] 1 tab PO DAILY Discontinued Aspirin 81 mg PO DAILY Discharge Medication List Labetalol [Trandate] 200 mg PO TID 08/07/21 [History] Vit No.179/Iron/Folic [ Tablet] 1 tab PO DAILY 09/19/21 [History] Famotidine [Pepcid] 20 mg PO BID 09/25/21 [History] Ibuprofen [Motrin] 600 mg PO Q6H #60 tab 10/24/21 [Rx] Follow up Appointment(s)/Referral(s): Kimberlyn Maria DO [Doctor of Osteopathic Medicine] - 12/05/21 11:30 am (Post op appointment 11/03/21 @1:30) Activity/Diet/Wound Care/Special Instructions: Instructions 1. Do not begin any exercise program for 3 weeks. 2. Do not resume sexual relations for 3 weeks or longer if uncomfortable. 3. You may take tub baths or showers at any time. 4. You may use tampons if desired after 3 weeks. 5. Keep the area of episiotomy (stitches) clean and dry. 6. If you are not nursing, wear a good fitting, supportive bra during the day and limit fluid intake for at least 1 week to prevent breast engorgement. 7. Call the office, [phone], within the next week to make appointment for your 6 week checkup if it has not already been made. 8. Report any of the following occurrences to the doctor promptly: a. Heavy, excessive bleeding b. Chills, fever c. Burning or frequency of urination d. Pain or redness and breasts if nursing e. Increasing pain or swelling in episiotomy (stitches). In addition to the above instructions, the following additional should be followed: 1. No heavy lifting or straining (exercising) until after 6 week checkup. 2. Keep abdominal incision clean and dry: You may wear a dressing if more co mfortable. 3. Make office appointment for 10 days after going home or as instructed by her doctor. Discharge Disposition: HOME SELF-CARE
== END 2021-10-24 11:00 | disposition home or self-care (01) | DRG 785 ==
LOC: 4FBP 05:47
PROVIDERS: ADMIT Obstetrics & Gynecology; ATTEND Obstetrics & Gynecology
PROC: 0UB50ZZ Excision of Right Fallopian Tube, Open Approach (ICD-10-PCS; principal; 2021-10-22 08:00)
PROC: 4A0HXCZ Measurement of Products of Conception, Cardiac Rate, External Approach (ICD-10-PCS; principal; 2021-10-22 08:00)
PROC: 10D00Z1 Extraction of Products of Conception, Low, Open Approach (ICD-10-PCS; principal; 2021-10-22 08:00)
DX: O34.211 Maternal care for low transverse scar from previous cesarean delivery (principal); O14.94 Unspecified pre-eclampsia, complicating childbirth; O32.8XX0 Maternal care for other malpresentation of fetus, not applicable or unspecified; O99.73 Diseases of the skin and subcutaneous tissue complicating the puerperium; L29.9 Pruritus, unspecified; Z30.2 Encounter for sterilization; Z37.0 Single live birth; Z3A.37 37 weeks gestation of pregnancy; Z79.82 Long term (current) use of aspirin; Z88.1 Allergy status to other antibiotic agents; Z88.5 Allergy status to narcotic agent; Z88.8 Allergy status to other drugs, medicaments and biological substances; Z90.49 Acquired absence of other specified parts of digestive tract; Z98.84 Bariatric surgery status; Z87.19 Personal history of other diseases of the digestive system; Z30.02 Counseling and instruction in natural family planning to avoid pregnancy
CPT/HCPCS: 81001; 82565; 82570; 83615; 84156; 84450; 84460; 84520; 84550; 85025; 85610; 85730; 86850; 86900; 86901; 88302; 88307

== ENCOUNTER 2022-02-25 06:49 | Emergency (ER) | payer OTHER ==
[2022-02-25 06:54] VITALS: BP 147/91; PULSE 73; RESP 18; TEMP 98.1
[2022-02-25] MEDS ORDERED: IBUPROFEN 600 MG TAB PO STA (07:04)
[2022-02-25] MEDS ORDERED: ACETAMINOPHEN TAB 325 MG TAB PO STA (07:04)
--- NOTE | 2022-02-25 07:09 | ED ---
ENT HPI - General Chief complaint: ENT Stated complaint: Ear Pain Time Seen by Provider: 02/25/22 06:58 Source: patient, RN notes reviewed, old records reviewed Mode of arrival: ambulatory Limitations: no limitations - History of Present Illness Initial comments: 31-year-old female presents to the emergency room with 1 day of right ear pain and congestion. States does have pain with pressure going into her neck and worse when she opens her mouth. Denies any trauma. No discharge. Denies any fevers, no systemic signs. MD complaint: ear pain -: days(s) (1) Location: R ear Severity scale (1-10): 9 Quality: aching, constant Consistency: constant Improves with: none Worsens with: other (jaw movement) Associated Symptoms: other (congestion) - Related Data Home Medications Medication Instructions Recorded Confirmed Labetalol [Trandate] 200 mg PO TID 08/07/21 10/22/21 Vit No.179/Iron/Folic 1 tab PO DAILY 09/19/21 10/22/21 [ Tablet] Famotidine [Pepcid] 20 mg PO BID 09/25/21 10/22/21 Previous Rx's Medication Instructions Recorded Ibuprofen [Motrin] 600 mg PO Q6H #60 tab 10/24/21 Azithromycin [Zithromax] 500 mg PO DAILY #5 tab 02/25/22 Allergies Allergy/AdvReac Type Severity Reaction Status Date / Time amoxicillin Allergy Anaphylaxis Verified 02/25/22 06:51 codeine Allergy Unknown Verified 02/25/22 06:51 hydromorphone [From Dilaudid] Allergy Chest Pain Verified 02/25/22 06:51 nitrofurantoin Allergy Anaphylaxis Verified 02/25/22 06:51 [From Macrobid] morphine AdvReac Unknown Verified 02/25/22 06:51 Review of Systems ROS Statement: Those systems with pertinent positive or pertinent negative responses have been documented in the HPI. ROS Other: All systems not noted in ROS Statement are negative. Past Medical History Past Medical History: Hypertension Additional Past Medical History / Comment(s): Hernia, ectopic , History of Any Multi-Drug Resistant Organisms: None Reported Past Surgical History: Adenoidectomy, Bariatric Surgery, Cholecystectomy, Orthopedic Surgery, Tonsillectomy Additional Past Surgical History / Comment(s): Laparoscopic L. salpingectomy due to ectopic Past Anesthesia/Blood Transfusion Reactions: No Reported Reaction Past Psychological History: No Psychological Hx Reported Smoking Status: Never smoker Past Alcohol Use History: None Reported Past Drug Use History: None Reported - Past Family History Mother Family Medical History: No Reported History Father Family Medical History: No Reported History General Exam Limitations: no limitations General appearance: alert, in no apparent distress Head exam: Present: atraumatic Eye exam: Present: normal appearance. Absent: scleral icterus, conjunctival injection, periorbital swelling, periorbital tenderness ENT exam: Present: normal exam, mucous membranes moist Expanded Ear exam: Present: normal external inspection. Absent: auricular hematoma, auricular trauma TM/Canal exam: Erythema: Right TM, Bulging: Right TM, Loss of Landmarks: Right TM Respiratory exam: Absent: respiratory distress, accessory muscle use Cardiovascular Exam: Present: regular rate Neurological exam: Present: alert, oriented X3, normal gait Psychiatric exam: Present: normal affect, normal mood Skin exam: Present: warm, dry, normal color. Absent: cyanosis, diaphoretic, petechiae, pallor Course Vital Signs 02/25/22 06:51 Temperature 98.1 F Pulse Rate 73 Respiratory 18 Rate Blood Pressure 147/91 O2 Sat by Pulse 98 Oximetry Medical Decision Making - Medical Decision Making Due to the patient's ALLERGY to amoxicillin she will be give a Z-pack for otitis media. She was also directed to continue ALLERGY medications daily. Follow-up with her primary care doctor this week. Case discussed with Dr. Gomez. Disposition Clinical Impression: Otitis media Disposition: HOME SELF-CARE Condition: Good Instructions (If sedation given, give patient instructions): Earache (ED) Additional Instructions: Take ALLERGY medication and the antibiotics as prescribed. Follow up with the primary care doctor this week. Return to the emergency room with any new or concerning symptoms. Prescriptions: Azithromycin [Zithromax] 500 mg PO DAILY #5 tab Is patient prescribed a controlled substance at d/c from ED?: No Referrals: None,Stated [Primary Care Provider] - 1-2 days Time of Disposition: 07:17
== END 2022-02-25 07:23 | disposition home or self-care (01) ==
LOC: EC 06:49
DX: H66.91 Otitis media, unspecified, right ear (principal); I10 Essential (primary) hypertension; Z88.0 Allergy status to penicillin; Z88.5 Allergy status to narcotic agent; Z88.1 Allergy status to other antibiotic agents; Z88.6 Allergy status to analgesic agent
CPT/HCPCS: 99282

== ENCOUNTER 2024-05-28 12:57 | Emergency (ER) | payer OTHER ==
--- NOTE | 2024-05-28 13:38 | ED ---
General Adult HPI - General Chief complaint: Abdominal Pain Stated complaint: abd pain Time Seen by Provider: 05/28/24 13:08 Source: patient Mode of arrival: ambulatory Limitations: no limitations - History of Present Illness Initial comments: Patient is a pleasant 33-year-old female presenting today for abdominal cramping. Patient states that she had a prior gastric bypass in December done by Dr. Vergara in [place]. On Wednesday she had a dilation performed and later that evening began experiencing cramping upper abdominal pain that radiated arou nd her right side. States the pain is intermittent. She is taking Gas-X without much relief. Has had associated increased amount of belching. Denies nausea, vomiting, diarrhea, melena, hematochezia, constipation. Last bowel movement was this morning, was soft and normal for her. Denies fevers or chills, numbness tingling or weakness. Denies dysuria or hematuria. Denies vaginal bleeding or discharge. Denies chance of states she has had a prior tubal ligation and endometrial ablation. Patient called her surgeon who is concerned she may have perforated bowel so directed her to emergency department. - Related Data Home Medications Medication Instructions Recorded Confirmed Labetalol [Trandate] 200 mg PO TID 08/07/21 10/22/21 Vit No.179/Iron/Folic 1 tab PO DAILY 09/19/21 10/22/21 [ Tablet] Famotidine [Pepcid] 20 mg PO BID 09/25/21 10/22/21 Previous Rx's Medication Instructions Recorded Ibuprofen [Motrin] 600 mg PO Q6H #60 tab 10/24/21 Azithromycin [Zithromax] 500 mg PO DAILY #5 tab 02/25/22 Allergies Allergy/AdvReac Type Severity Reaction Status Date / Time amoxicillin Allergy Anaphylaxis Verified 02/25/22 06:51 codeine Allergy Unknown Verified 02/25/22 06:51 hydromorphone [From Dilaudid] Allergy Chest Pain Verified 02/25/22 06:51 nitrofurantoin Allergy Anaphylaxis Verified 02/25/22 06:51 [From Macrobid] morphine AdvReac Unknown Verified 02/25/22 06:51 Review of Systems ROS Statement: Those systems with pertinent positive or pertinent negative responses have been documented in the HPI. ROS Other: All systems not noted in ROS Statement are negative. Past Medical History Past Medical History: Hypertension Additional Past Medical History / Comment(s): Hernia, ectopic , History of Any Multi-Drug Resistant Organisms: None Reported Past Surgical History: Adenoidectomy, Bariatric Surgery, Cholecystectomy, Orthopedic Surgery, Tonsillectomy Additional Past Surgical History / Comment(s): Laparoscopic L. salpingectomy due to ectopic, gastric bypass 01/04/24 and dilation surgery Past Anesthesia/Blood Transfusion Reactions: No Reported Reaction Past Psychological History: No Psychological Hx Reported Smoking Status: Never smoker Past Alcohol Use History: None Reported Past Drug Use History: None Reported - Past Family History Mother Family Medical History: No Reported History Father Family Medical History: No Reported History General Exam - General Exam Comments Initial Comments: PE: CONSTITUTIONAL: No apparent distress, well appearing SKIN: Warm, dry, no jaundice, hives or petechiae EYES: Pupils are equally round, extraocular movements intact without nystagmus, clear conjunctiva, non-icteric sclera HENT: Normocephalic, atraumatic, moist mucus membranes, oropharynx clear without exudates NECK: , Full range of motion, normal appearance PULMONARY: Clear to auscultation without wheezes, rhonchi, or rales, normal excursion, no accessory muscle use and no stridor CARDIOVASCULAR: Regular rate, rhythm, normal S1 and S2. No appreciated murmurs, rubs or gallops. Strong radial pulses with intact distal perfusion. No lower extremity edema GASTROINTESTINAL: Soft, active bowel sounds throughout, non-tender, non- distended, no palpable masses, no rebound or guarding. No hepatosplenomegaly GENITOURINARY: No CVA tenderness to palpation MUSCULOSKELETAL: Extremities have no gross deformity, no edema, redness, or swelling. No calf swelling NEUROLOGIC:_a/o x 3, GCS 15, normal mentation and speech. Moves all extremities x 4 without motor or sensory deficit PSYCHIATRIC:_normal mood and affect, thought process is clear and linear Limitations: no limitations Course Vital Signs 05/28/24 05/28/24 05/28/24 13:04 14:01 15:49 Temperature 97.8 F 98.2 F Pulse Rate 71 76 78 Respiratory 18 17 16 Rate Blood Pressure 139/87 141/92 O2 Sat by Pulse 100 100 96 Oximetry 05/28/24 17:14 Temperature Pulse Rate Respiratory 8 L Rate Blood Pressure O2 Sat by Pulse Oximetry EKG Findings - EKG Comments: EKG Findings:: Sinus rhythm rate 62 bpm GA interval 166 ms QT/QTc 436/442 ms, left axis deviation, T wave inversion lead V1 and lead III, no significant ST elevations or depressions, low voltage EKG Medical Decision Making - Medical Decision Making Was pt. sent in by a medical professional or institution (, ETHAN, LOG CHECK SCALER, urgent care, hospital, or [facility]...) When possible be specific @Patient was sent in by her surgeon, Dr. Vergara Did you speak to anyone other than the patient for history (EMS, parent, family, police, friend...)? What history was obtained from this source @ -No Did you review nursing and triage notes (agree or disagree)? Why? @ -I reviewed nursing and triage notes Were old charts reviewed (outside hosp., previous admission, EMS record, old EK G, old radiological studies, urgent care reports/EKG's, [facility] records)? Report findings @ -Medical records reviewed patient last in the emergency department on 02/25/2022 for right ear pain and congestion Differential Diagnosis (chest pain, altered mental status, abdominal pain women, abdominal pain men, vaginal bleeding, weakness, fever, dyspnea, syncope, headache, dizziness, GI bleed, back pain, seizure, CVA, palpatations, mental health, musculoskeletal)? Differential Abdominal Pain Women: Appendicitis, Cholecystitis, diverticulosis, ischemic bowel, pancreatitis, hepatitis, UTI, gastroenteritis,incarcerated hernia, bowel obstruction, constipation, inflammatory bowel, peptic ulcer disease, perforated viscus, kidney stone, this is not meant to be an all-inclusive list EKG interpreted by me (3pts min.). @ -As above X-rays interpreted by me (1pt min.). @ -None done CT interpreted by me (1pt min.). I personally reviewed CT abdomen/pelvis, I see no evidence of free air or free fluid, no evidence of obstruction, I agree w/ radiologist interpretation U/S interpreted by me (1pt. min.). @ -None done What testing was considered but not performed or refused? (CT, X-rays, U/S, labs)? Why? @ -None What meds were considered but not given or refused? Why? @ GI cocktail was considered however pt politely declined medications, stating asymptomatic at this time Did you discuss the management of the patient with other professionals (professionals i.e. , PA, LOG CHECK SCALER, lab, RT, psych nurse, social services, fruit sorter, teacher, preventive medicine officer, manager of case management)? Give summary @Case was discussed w/ Dr. Vergara, pt's surgeon, updated him to CT findings and labs, is comfortably with pt following up tomorrow in his office Was smoking cessation discussed for >3mins.? @ -No Was critical care preformed (if so, how long)? @ -No Were there social determinants of health that impacted care today? How? ( Homelessness, low income, unemployed, alcoholism, drug addiction, transportation, low edu. Level, literacy, decrease access to med. care, alf, rehab)? @ -No Was there de-escalation of care discussed even if they declined (Discuss DNR or withdrawal of care, Hospice)? @ -No What co-morbidities impacted this encounter? (DM, HTN, Smoking, COPD, CAD, Cancer, CVA, ARF, Chemo, Hep., AIDS, mental health diagnosis, sleep apnea, morbid obesity)? Prior gastric bypass Was patient admitted / discharged? Hospital course, mention meds given and route, prescriptions, significant lab abnormalities, going to OR and other pertinent info. @Discharged-this is a pleasant 33-year-old female past medical history of prior gastric bypass in December 2023, recent "dilation" this past Wednesday presenting today for cramping abdominal pain that is intermittent. Vital signs within acceptable limits on arrival, patient afebrile is not tachycardic. She is well- appearing in no acute distress. Abdomen is soft and nontender with active bowel sounds. Nondistended. There was limited by body habitus. Plan for CT abdomen pelvis, urinalysis, labs, IV fluids. I offered pain control however she politely declined stating she is not currently in pain. Additionally, given epigastric component of pain, atypical ACS as considered, though much lower on differential diagnosis as pt denies chest pain or DB, given pt hx, exam and lack of risk factors, will obtain EKG and single troponin as pain ongoing for ~ 5 days and would expect elevation at this point if 2/2 ACS. Labs reviewed. Grossly within normal limits. Abnormal values not concerning for acute pathology related to presenting complaint. Troponin was undetectable. Urinalysis did show large leukocyte esterase but negative nitrites, 7 white blood cells, 22 squamous cells rare bacteria, patient denies any symptoms of a UTI at this time suspect contaminated source. CT abdomen pelvis showed no acute process or evidence of perforation. Updated patient to findings. Case was discussed with Dr. Nicole, patient surgeon, see rec's above. Patient is comfor table with plan for discharge and follow-up with her surgeon tomorrow. In my medical judgment there is currently no evidence of an immediate life- threatening or surgical condition. Discharge is therefore indicated at this time. Discharge treatment instructions, follow up instructions, and appropriate emergency department return precautions were discussed with the patient and/or medical decision maker. Patient and/or medical decision maker expressed understanding of and agreed with the treatment plan, follow up instructions, and emergency department return precaution. All patient's and/or medical decision maker's questions were answered. The patient was instructed to return to the ED for any changes in symptoms, persistent symptoms, inability to obtain proper follow-up or for any further concerns. Patient received verbal and written instructions for this condition. Undiagnosed new problem with uncertain prognosis? @ -No Drug Therapy requiring intensive monitoring for toxicity (Heparin, Nitro, Insulin, Cardizem)? @ -No Were any procedures done? @ -No Diagnosis/symptom? @Abdominal pain Acute, or Chronic, or Acute on Chronic? @Acute Uncomplicated (without systemic symptoms) or Complicated (systemic symptoms)? uncomplicated Side effects of treatment? @ -No Exacerbation, Progression, or Severe Exacerbation? @ -No Poses a threat to life or bodily function? How? (Chest pain, [place], [place], pneumonia, PE, COPD, DKA, ARF, appy, cholecystitis, CVA, Diverticulitis, Homicidal, Suicidal, threat to staff... and all critical care pts) @ -No - Lab Data Result diagrams: 05/28/24 14:00 05/28/24 14:00 Lab Results 05/28/24 05/28/24 05/28/24 Range/Units 14:00 14:00 14:00 WBC 8.0 (3.8-10.6) k/uL RBC 5.00 (3.80-5.40) m/uL Hgb 12.8 (11.4-16.0) gm/dL Hct 40.5 (34.0-46.0) % MCV 81.0 (80.0-100.0) fL MCH 25.5 (25.0-35.0) pg MCHC 31.5 (31.0-37.0) g/dL RDW 15.5 (11.5-15.5) % Plt Count 294 (150-450) k/uL MPV 7.6 Neutrophils % 57 % Lymphocytes % 33 % Monocytes % 5 % Eosinophils % 2 % Basophils % 1 % Neutrophils # 4.6 (1.3-7.7) k/uL Lymphocytes # 2.7 (1.0-4.8) k/uL Monocytes # 0.4 (0-1.0) k/uL Eosinophils # 0.2 (0-0.7) k/uL Basophils # 0.0 (0-0.2) k/uL PT 11.2 (10.0-12.5) sec INR 1.0 (<1.2) APTT 26.8 (22.0-30.0) sec Sodium 138 (137-145) mmol/L Potassium 3.8 (3.5-5.1) mmol/L Chloride 102 (98-107) mmol/L Carbon Dioxide 29 (22-30) mmol/L Anion Gap 7 mmol/L BUN 7 (7-17) mg/dL Creatinine 0.58 (0.52-1.04) mg/dL Est GFR (CKD-EPI)AfAm >90 (>60 ml/min/1.73 sqM) Est GFR (CKD-EPI)NonAf >90 (>60 ml/min/1.73 sqM) Glucose 81 (74-99) mg/dL Plasma Lactic Acid Neto (0.7-2.0) mmol/L Calcium 9.3 (8.4-10.2) mg/dL Total Bilirubin 0.6 (0.2-1.3) mg/dL AST 29 (14-36) U/L ALT 24 (4-34) U/L Alkaline Phosphatase 57 (38-126) U/L Troponin I (0.000-0.034) ng/mL Total Protein 6.4 (6.3-8.2) g/dL Albumin 3.8 (3.5-5.0) g/dL Amylase 41 (30-110) U/L Lipase 90 (23-300) U/L HCG, Qual Not Detected Urine Color Urine Appearance (Clear) Urine pH (5.0-8.0) Ur Specific Huddy (1.001-1.035) Urine Protein (Negative) Urine Glucose (UA) (Negative) Urine Ketones (Negative) Urine Blood (Negative) Urine Nitrite (Negative) Urine Bilirubin (Negative) Urine Urobilinogen (<2.0) mg/dL Ur Leukocyte Esterase (Negative) Urine RBC (0-5) /hpf Urine WBC (0-5) /hpf Ur Squamous Epith Cells (0-4) /hpf Urine Bacteria (None) /hpf Urine Mucus (None) /hpf 05/28/24 05/28/24 05/28/24 Range/Units 14:00 14:00 14:00 WBC (3.8-10.6) k/uL RBC (3.80-5.40) m/uL Hgb (11.4-16.0) gm/dL Hct (34.0-46.0) % MCV (80.0-100.0) fL MCH (25.0-35.0) pg MCHC (31.0-37.0) g/dL RDW (11.5-15.5) % Plt Count (150-450) k/uL MPV Neutrophils % % Lymphocytes % % Monocytes % % Eosinophils % % Basophils % % Neutrophils # (1.3-7.7) k/uL Lymphocytes # (1.0-4.8) k/uL Monocytes # (0-1.0) k/uL Eosinophils # (0-0.7) k/uL Basophils # (0-0.2) k/uL PT (10.0-12.5) sec INR (<1.2) APTT (22.0-30.0) sec Sodium (137-145) mmol/L Potassium (3.5-5.1) mmol/L Chloride (98-107) mmol/L Carbon Dioxide (22-30) mmol/L Anion Gap mmol/L BUN (7-17) mg/dL Creatinine (0.52-1.04) mg/dL Est GFR (CKD-EPI)AfAm (>60 ml/min/1.73 sqM) Est GFR (CKD-EPI)NonAf (>60 ml/min/1.73 sqM) Glucose (74-99) mg/dL Plasma Lactic Acid Neto 1.0 (0.7-2.0) mmol/L Calcium (8.4-10.2) mg/dL Total Bilirubin (0.2-1.3) mg/dL AST (14-36) U/L ALT (4-34) U/L Alkaline Phosphatase (38-126) U/L Troponin I <0.012 (0.000-0.034) ng/mL Total Protein (6.3-8.2) g/dL Albumin (3.5-5.0) g/dL Amylase (30-110) U/L Lipase (23-300) U/L HCG, Qual Urine Color Yellow Urine Appearance Cloudy H (Clear) Urine pH 6.0 (5.0-8.0) Ur Specific [place]dy 1.032 (1.001-1.035) Urine Protein Trace H (Negative) Urine Glucose (UA) Negative (Negative) Urine Ketones Trace H (Negative) Urine Blood Negative (Negative) Urine Nitrite Negative (Negative) Urine Bilirubin Negative (Negative) Urine Urobilinogen 4.0 (<2.0) mg/dL Ur Leukocyte Esterase Large H (Negative) Urine RBC 3 (0-5) /hpf Urine WBC 7 H (0-5) /hpf Ur Squamous Epith Cells 22 H (0-4) /hpf Urine Bacteria Rare H (None) /hpf Urine Mucus Many H (None) /hpf Disposition Clinical Impression: Gas pain Disposition: HOME SELF-CARE Condition: Stable Instructions (If sedation given, give patient instructions): Abdominal Pain (ED) Additional Instructions: Every disease is a spectrum and a small chance still exists that a serious condition could develop, for this reason, please monitor yourself closely for new, changing or worsening symptoms, symptoms that do not improve in 48 hours, vomiting, vomiting blood, no bowel movement for greater than 72 hours, uncontrollable pain fever, inability to tolerate/keep down fluids or your medications, inability to follow up with outpatient providers as instructed and should you experience these symptoms or should you have any further concerns for your wellbeing please return to the ED or call 911 immediately. Please maintain a clear liquid diet until you see Dr. Vergara Please call Dr. Vergara's office first thing in the morning for follow up in the next 24 hours. PLEASE call your primary care physician as soon as possible to arrange / discuss plan for followup appointment. Appointment in the next 1-3 days is strongly encouraged if possible. PLEASE let us know here before you leave if there is anything further we can do to be of any assistance. Take care and feel Better! Is patient prescribed a controlled substance at d/c from ED?: No Referrals: Dennys Wagner MD [Primary Care Provider] - 1-2 days
[2024-05-28] MEDS: SODIUM CHLORIDE 0.9% 1,000 ML IV ONE (14:01)
[2024-05-28 14:23] LABS: Basophils % (A) 1 %; Eosinophils # (A) 0.2 k/uL (0-0.7); Eosinophils % (A) 2 %; HCT 40.5 % (34.0-46.0); HGB 12.8 gm/dL (11.4-16.0); Lymphocytes # (A) 2.7 k/uL (1.0-4.8); Lymphocytes % (A) 33 %; MCH 25.5 pg (25.0-35.0); MCHC 31.5 g/dL (31.0-37.0); Mean Platelet Volume 7.6; Monocytes # (A) 0.4 k/uL (0-1.0); Monocytes % (A) 5 %; Neutrophils # (A) 4.6 k/uL (1.3-7.7); Neutrophils % (A) 57 %; Platelet Count 294 k/uL (150-450); RDW 15.5 % (11.5-15.5)
[2024-05-28 14:37] LABS: Appearance,Urine Cloudy (Clear); Bacteria,Urine Rare /hpf; Bilirubin,Urine Negative (Negative); Blood,Urine Negative (Negative); Color,Urine Yellow; Glucose,Urine (UA) Negative (Negative); HCG,Qualitative Serum Not Detected; Ketones,Urine Trace (Negative); Leukocyte Esterase,Urine Large (Negative); Mucus,Urine Many /hpf; Nitrite,Urine Negative (Negative); Protein,Urine Trace (Negative); RBC,Urine 3 /hpf (0-5); Specific Gravity,Urine 1.032 (1.001-1.035); Squamous Epithelial Cell,Urine 22 /hpf (0-4); WBC,Urine 7 /hpf (0-5)
[2024-05-28 14:38] LABS: Partial Thromboplastin Time 26.8 sec (22.0-30.0); Prothrombin Time 11.2 sec (10.0-12.5)
[2024-05-28 14:51] LABS: ALT 24 U/L (4-34); AST 29 U/L (14-36); African American GFR (CKD) >90 (>60 ml/min/1.73 sqM); Albumin 3.8 g/dL (3.5-5.0); Alkaline Phosphatase 57 U/L (38-126); Amylase 41 U/L (30-110); Anion Gap 7 mmol/L; Blood Urea Nitrogen 7 mg/dL (7-17); Calcium 9.3 mg/dL (8.4-10.2); Carbon Dioxide 29 mmol/L (22-30); Chloride 102 mmol/L (98-107); Glucose 81 mg/dL (74-99); Lipase 90 U/L (23-300); Non-African American GFR(CKD) >90 (>60 ml/min/1.73 sqM); Potassium 3.8 mmol/L (3.5-5.1); Sodium 138 mmol/L (137-145); Total Bilirubin 0.6 mg/dL (0.2-1.3); Total Protein 6.4 g/dL (6.3-8.2)
--- NOTE | 2024-05-28 15:40 | CT ---
EXAMINATION TYPE: CT abdomen pelvis w con DATE OF EXAM: 05/28/2024 3:13 PM COMPARISON: None available. CLINICAL INDICATION: Female, 33 years old with history of abdominal pain; abdominal pain TECHNIQUE: Axial CT abdomen pelvis w con;Sagittal and coronal reformats were created on a separate w orkstation. Contrast used:100 ml mL of Isovue 370 with IV Contrast, (none if empty) Oral contrast used: without Oral Contrast (none if empty) CT DLP: 3257.9 mGycm, Automated exposure control for dose reduction was used. FINDINGS: LOWER CHEST: Unremarkable ABDOMEN LIVER: Unremarkable GALLBLADDER AND BILE DUCTS: The gallbladder is surgically absent. PANCREAS: Unremarkable. SPLEEN: Mild splenomegaly measuring 15.4 cm in craniocaudal dimension. ADRENAL GLANDS: Unremarkable. KIDNEYS AND URETERS: No evidence of hydronephrosis or renal calculus. The ureters are unremarkable. PELVIS BLADDER: No evidence for wall thickening or mass given limitations of exam. REPRODUCTIVE: Unremarkable. ABDOMEN & PELVIS STOMACH AND BOWEL: Postsurgical changes compatible with previous Kimberly-en-Y gastric bypass. Small fritz r hernia. Appendix normal. No small bowel obstruction. PERITONEUM/RETROPERITONEUM: No evidence of pneumoperitoneum or free fluid. VASCULATURE: No evidence of aortic aneurysm. MUSCULOSKELETAL: No acute osseous abnormalities LYMPH NODES: No gross evidence for lymphadenopathy. SOFT TISSUE/ABDOMINAL WALL: Unremarkable IMPRESSION: No acute abnormality in the abdomen/pelvis or CT findings to explain reported symptoms. [facility], , 05/28/2024 3:38 PM
[2024-05-28 15:51] VITALS: BP 141/92; PULSE 78; TEMP 98.2
[2024-05-28 17:16] VITALS: RESP 8
== END 2024-05-28 17:19 | disposition home or self-care (01) ==
LOC: EC 12:57
DX: R14.1 Gas pain (principal); Z98.84 Bariatric surgery status
CPT/HCPCS: 36415; 93005; 80053; 82150; 83605; 83690; 84484; 85025; 85610; 85730; 81001; 84703; 74177; 99285; 96360; Q9967